=== PATIENT | female | born 1995 | race American Indian/Alaskan Native ===

== ENCOUNTER 2019-01-27 16:05 | Observation (INO) | payer MEDICAID ==
[2019-01-27] MEDS ORDERED: LACTATED RINGERS 500 ML IV ONE (17:09)
[2019-01-27 17:40] LABS: Hematocrit 23.3 % (30.3-42.9); Hemoglobin 7.7 gm/dl (10.1-14.3); Mean Corpuscular HGB Conc 33 % (30-34); Platelet Count 152 K/mm3 (140-440); Red Blood Count 3.42 M/mm3 (3.65-5.03); Red Cell Distribution Width 18.6 % (13.2-15.2)
[2019-01-27 17:41] LABS: Mean Corpuscular Volume 68 fl (79-97)
[2019-01-27 17:46] LABS: Bacteria,Urine 1+ /HPF (Negative); Bilirubin,Urine NEG (Negative); Blood,Urine NEG (Negative); Color,Urine Yellow (Yellow); Protein,Urine <15 mg/dL mg/dL (Negative); RBC,Urine < 1.0 /HPF (0.0-6.0)
[2019-01-27 17:56] LABS: Alanine Aminotransferase 7 units/L (7-56)
[2019-01-27] MEDS ORDERED: LACTATED RINGERS 1,000 ML IV SCH ×2 (18:00→19:00)
[2019-01-27] MEDS ORDERED: TYLENOL PO PRN (18:03)
[2019-01-27] MEDS ORDERED: DEEP SEA NS PRN (18:03)
[2019-01-27] MEDS ORDERED: COLACE PO PRN (18:03)
[2019-01-27] MEDS ORDERED: ZOFRAN IV PRN (18:03)
[2019-01-27] MEDS ORDERED: AMBIEN PO PRN (18:03)
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
[2019-01-27] MEDS ORDERED: CELESTONE SOLUSPAN IM ONE (19:25)
[2019-01-27] MEDS ORDERED: CELESTONE SOLUSPAN IM SCH (20:00)
[2019-01-27] MEDS ORDERED: COLACE PO SCH (22:00)
[2019-01-27] MEDS ORDERED: DECADRON IM SCH (22:00)
[2019-01-27] MEDS: FEOSOL PO SCH (22:13)
--- NOTE | 2019-01-28 07:38 | Progress Note ---
Assessment and Plan 24h urine in progress - will be completed @ 9040. b/p 140-160/80-90's. Pt states she has been told several times by various hospitals that she has elevated blood pressure but she has never had consistent care with a PCP to make dx. She denies SALOMON, visual changes, epigastric pain, ctx, SROM or vag bleeding. pt reports active FM. Continue current management. - Patient Problems (1) 34 weeks gestation of Onset Date: ~01/27/19 Current Visit: Yes Status: Acute (2) Anemia affecting Current Visit: Yes Status: Acute Qualifiers: Trimester: third trimester Qualified Code(s): O99.013 - Anemia complicating , third trimester Plan to address problem: FE and Colace (3) Elevated blood pressure complicating in third trimester, antepartum Onset Date: ~01/27/19 Current Visit: Yes Status: Acute Plan to address problem: 24h urine in progress (4) Insufficient care in third trimester Current Visit: Yes Status: Acute Subjective - Subjective Date of service: 01/28/19 Principal diagnosis: IUP @ 34+4, 24h urine collection in progress Patient reports: other (denies SALOMON, visual changes, epigastric pain, ctx, SROM or vag bleeding), no new complaints Objective - Vital Signs Vital Signs: Vital Signs - 12hr 01/27/19 01/27/19 01/27/19 19:40 19:41 19:45 Pulse Rate 97 H 97 H 94 H Blood Pressure Blood Pressure [Left] O2 Sat by Pulse 92 92 99 Oximetry 01/27/19 01/27/19 01/27/19 19:46 19:50 19:55 Pulse Rate 105 H 93 H 98 H Blood Pressure Blood Pressure [Left] O2 Sat by Pulse 83 L 100 98 Oximetry 01/27/19 01/27/19 01/27/19 20:04 20:09 20:14 Pulse Rate 112 H 97 H 96 H Blood Pressure Blood Pressure [Left] O2 Sat by Pulse 92 98 97 Oximetry 01/27/19 01/27/19 01/27/19 20:19 20:24 20:29 Pulse Rate 104 H 92 H 102 H Blood Pressure Blood Pressure [Left] O2 Sat by Pulse 97 98 97 Oximetry 01/27/19 01/27/19 01/27/19 20:34 20:39 20:43 Pulse Rate 104 H 132 H 122 H Blood Pressure Blood Pressure [Left] O2 Sat by Pulse 98 98 87 Oximetry 01/27/19 01/27/19 01/27/19 20:44 20:49 20:54 Pulse Rate 107 H 103 H 106 H Blood Pressure Blood Pressure [Left] O2 Sat by Pulse 98 97 97 Oximetry 01/27/19 01/27/19 01/27/19 20:59 21:02 21:04 Pulse Rate 104 H 89 95 H Blood Pressure Blood Pressure [Left] O2 Sat by Pulse 96 86 96 Oximetry 01/27/19 01/27/19 01/27/19 21:09 21:14 21:21 Pulse Rate 116 H 105 H 130 H Blood Pressure Blood Pressure [Left] O2 Sat by Pulse 98 98 84 Oximetry 01/27/19 01/27/19 01/27/19 21:22 21:23 21:26 Pulse Rate 110 H 109 H 108 H Blood Pressure 165/98 162/98 Blood Pressure [Left] O2 Sat by Pulse 98 Oximetry 01/27/19 01/27/19 01/27/19 21:31 21:36 21:39 Pulse Rate 101 H 98 H 99 H Blood Pressure Blood Pressure [Left] O2 Sat by Pulse 99 97 94 Oximetry 01/27/19 01/27/19 01/27/19 21:41 21:46 21:51 Pulse Rate 98 H 91 H 90 Blood Pressure Blood Pressure [Left] O2 Sat by Pulse 96 95 98 Oximetry 01/27/19 01/27/19 01/27/19 21:56 22:10 22:15 Pulse Rate 106 H 110 H Blood Pressure Blood Pressure 162/98 [Left] O2 Sat by Pulse 98 98 Oximetry 01/27/19 01/27/19 01/27/19 22:25 22:30 22:35 Pulse Rate 113 H 103 H 88 Blood Pressure Blood Pressure [Left] O2 Sat by Pulse 99 99 97 Oximetry 01/27/19 01/27/19 01/27/19 22:40 22:45 22:50 Pulse Rate 101 H 108 H 108 H Blood Pressure 166/98 Blood Pressure [Left] O2 Sat by Pulse 98 99 99 Oximetry 01/27/19 01/27/19 01/27/19 22:54 22:55 23:00 Pulse Rate 91 H 85 85 Blood Pressure Blood Pressure [Left] O2 Sat by Pulse 82 L 99 96 Oximetry 01/27/19 01/27/19 01/27/19 23:05 23:10 23:15 Pulse Rate 85 82 98 H Blood Pressure Blood Pressure [Left] O2 Sat by Pulse 99 98 98 Oximetry 01/27/19 01/27/19 01/27/19 23:20 23:25 23:30 Pulse Rate 104 H 88 89 Blood Pressure 143/92 Blood Pressure [Left] O2 Sat by Pulse 99 98 97 Oximetry 01/27/19 01/27/19 01/27/19 23:35 23:40 23:46 Pulse Rate 89 109 H 113 H Blood Pressure Blood Pressure [Left] O2 Sat by Pulse 97 96 96 Oximetry 01/27/19 01/27/19 01/27/19 23:47 23:51 23:56 Pulse Rate 114 H 94 H 85 Blood Pressure Blood Pressure [Left] O2 Sat by Pulse 86 96 96 Oximetry 01/28/19 01/28/19 01/28/19 00:01 00:06 00:11 Pulse Rate 81 88 77 Blood Pressure Blood Pressure [Left] O2 Sat by Pulse 96 96 95 Oximetry 01/28/19 01/28/19 01/28/19 00:16 00:20 00:21 Pulse Rate 81 105 H 105 H Blood Pressure 151/83 150/81 Blood Pressure [Left] O2 Sat by Pulse 96 98 Oximetry 01/28/19 01/28/19 01/28/19 00:23 00:26 00:31 Pulse Rate 105 H 90 96 H Blood Pressure Blood Pressure [Left] O2 Sat by Pulse 94 95 97 Oximetry 01/28/19 01/28/19 01/28/19 00:36 00:38 00:41 Pulse Rate 80 110 H 80 Blood Pressure Blood Pressure [Left] O2 Sat by Pulse 97 92 96 Oximetry 01/28/19 01/28/19 01/28/19 00:46 00:51 00:56 Pulse Rate 79 81 79 Blood Pressure Blood Pressure [Left] O2 Sat by Pulse 96 95 96 Oximetry 01/28/19 01/28/19 01/28/19 01:01 01:06 01:11 Pulse Rate 96 H 98 H 80 Blood Pressure Blood Pressure [Left] O2 Sat by Pulse 97 97 95 Oximetry 01/28/19 01/28/19 01/28/19 01:14 01:19 02:07 Pulse Rate 109 H 107 H 82 Blood Pressure 142/93 140/85 162/91 Blood Pressure [Left] O2 Sat by Pulse Oximetry 01/28/19 01/28/19 01/28/19 02:22 06:00 06:04 Pulse Rate 88 112 H 115 H Blood Pressure 140/80 145/84 Blood Pressure [Left] O2 Sat by Pulse 100 Oximetry 01/28/19 06:31 Pulse Rate 115 H Blood Pressure Blood Pressure 145/84 [Left] O2 Sat by Pulse Oximetry - Exam Breasts: normal Cardiovascular: Regular rate Lungs: Clear to auscultation Abdomen: Present: normal appearance, soft Vulva: both: normal FHR: auscultation normal, category 1 Uterine Contraction Monitor Mode: External Uterine Contraction Pattern: Irregular Uterine Tone Measurement Phase: Contraction Uterine Contraction Intensity: Mild Extremities: normal Deep Tendon Reflex Grade: Normal +2 - Labs Labs: Abnormal Labs 01/27/19 01/27/19 01/27/19 Unknown Unknown Unknown RBC 3.42 L Hgb 7.7 L Hct 23.3 L MCV 68 L MCH 23 L RDW 18.6 H Creatinine 0.5 L Lactate Dehydrogenase 354 H Urine pH 9.0 H Laboratory Results - last 24 hr 01/27/19 01/27/19 01/27/19 20:29 Unknown Unknown WBC 8.8 RBC 3.42 L Hgb 7.7 L Hct 23.3 L MCV 68 L MCH 23 L MCHC 33 RDW 18.6 H Plt Count 152 Creatinine Estimated GFR Uric Acid AST ALT Lactate Dehydrogenase Urine Color Yellow Urine Turbidity Clear Urine pH 9.0 H Ur Specific [place] 1.006 Urine Protein <15 mg/dl Urine Glucose (UA) Neg Urine Ketones 20 Urine Blood Neg Urine Nitrite Neg Urine Bilirubin Neg Urine Urobilinogen 4.0 Ur Leukocyte Esterase Tr Urine WBC (Auto) 2.0 Urine RBC (Auto) < 1.0 U Epithel Cells (Auto) 2.0 Urine Bacteria (Auto) 1+ Blood Type B POSITIVE Antibody Screen Negative 01/27/19 Unknown WBC RBC Hgb Hct MCV MCH MCHC RDW Plt Count Creatinine 0.5 L Estimated GFR > 60 Uric Acid 4.0 AST 26 ALT 7 Lactate Dehydrogenase 354 H Urine Color Urine Turbidity Urine pH Ur Specific [place] Urine Protein Urine Glucose (UA) Urine Ketones Urine Blood Urine Nitrite Urine Bilirubin Urine Urobilinogen Ur Leukocyte Esterase Urine WBC (Auto) Urine RBC (Auto) U Epithel Cells (Auto) Urine Bacteria (Auto) Blood Type Antibody Screen
[2019-01-28] MEDS ORDERED: COLACE PO SCH (10:00)
[2019-01-28] MEDS ORDERED: PRENATAL VITAMIN PO SCH (10:00)
[2019-01-28] MEDS: FEOSOL PO SCH (10:07)
--- NOTE | 2019-01-28 20:23 | Discharge Summary ---
Providers - Providers Date of Admission: 01/27/19 18:03 Date of discharge: 01/28/19 Attending physician: IRWIN ENCARNACION Primary care physician: IRWIN ENCARNACION Hospitalization Reason for admission: IUP - , other (back pain with elevated blood pressures) Hospital course: Patient presented to labor and delivery with complaints of back pain. Her evaluation was noted patient had elevated blood pressure. Patient admitted for serial blood pressure medicines. Patient had normal PIH labs. Hospitalization patient does admit that she had several medications which she had been evaluated for elevated blood pressure. Hospitalization her back pain improved her blood pressures for most probably under 140/90 did had some elevations higher than the stay. She denied any headaches or blurred vision. Patient 24-hour urine protein returned at 440 g. Patient also received 2 doses of betamethasone. At time of discharge patient was stable. Patient may either have chronic hypertension versus gestational hypertension. Patient was given precautions for preeclampsia and was scheduled for follow-up in the office on January 30. Condition at discharge: Good Disposition: DC-01 TO HOME OR SELFCARE - Discharge Diagnoses (1) 34 weeks gestation of Status: Acute (2) Anemia affecting in third trimester Status: Acute (3) Elevated blood pressure complicating in third trimester, an tepartum Status: Acute (4) Insufficient care in third trimester Status: Acute Plan - Provider Discharge Summary Activity: other (bed rest) Diet: routine Additional instructions: [] Smoking cessation referral if applicable(refer to patient education folder for contact #) [] Refer to [facility]'s [facility] Booklet Call your doctor immediately for: * Fever > 100.5 * Heavy vaginal bleeding ( >1 pad per hour) * Severe persistent headache * Shortness of breath * Visual changes * Signs of labor * - Follow up plan Follow up: IRWIN ENCARNACION MD [Primary Care Provider] - 7 Days Forms: [facility] Discharge Summary
[2019-01-28 20:50] VITALS: BP 138/66
--- NOTE | 2019-01-29 06:01 | Ultrasound Report ---
PROCEDURE: US OB FOLLOW UP TECHNIQUE: Real-time sonography performed for focused follow-up or re-evaluation of each size/ growth parameters and amniotic fluid or re-evaluation of suspected or confirmed abnormality on prior imaging. HISTORY: wellbeing COMPARISONS: None . FINDINGS: FETUS IUP: Single living intrauterine . Position: Cephalic . Amniotic fluid volume: Amniotic fluid index is 10.9 cm. . Heart rate and rhythm: 128 BPM, Regular . anatomic survey: Limited due to advanced gestational age. . MEASUREMENTS BPD: 8.6 cm corresponding to 34 weeks and 4 days . HC: 31 cm corresponding to 34 weeks and 4 days . AC: 29.3 cm corresponding to 33 weeks and 2 days . FL: 6.5 cm corresponding to 33 weeks and 4 days . Mean Gestational Age (composite criteria): 34 weeks . Ratio biometry: Normal . Estimated Weight: 2237 grams +/- grams. ounces +/- .ounces. percentile. Interval growth: Appropriate . Estimated Due Date (earliest scan): 03/11/2019 . IMPRESSION: 1. Single living intrauterine gestation at approximately 34 weeks . 2. EDC by US 03/11/2019 . This document is electronically signed by Frankie Mills MD., January 29 2019 06:00:00 AM ET
--- NOTE | 2019-01-29 06:03 | Ultrasound Report ---
PROCEDURE: US OB BPP WO NON-STRESS TECHNIQUE: Real-time sonography performed for focused follow-up or re-evaluation of each size/ growth parameters and amniotic fluid or re-evaluation of suspected or confirmed abnormality on prior imaging. HISTORY: wellbeing COMPARISONS: None . FINDINGS: breathing movements: 2 movements: 2. posture and tone: 2. Qualitative amniotic fluid volume: 2. IMPRESSION: biophysical profile is normal at 8/8. This document is electronically signed by Frankie Mills MD., January 29 2019 06:01:15 AM ET
== END 2019-01-28 21:30 | disposition home or self-care (01) ==
LOC: TRG 16:05 → LD 18:03
PROVIDERS: ADMIT Obstetrics & Gynecology; ATTEND Obstetrics & Gynecology
DX: O99.013 Anemia complicating pregnancy, third trimester (principal); O26.893 Other specified pregnancy related conditions, third trimester; R03.0 Elevated blood-pressure reading, without diagnosis of hypertension; O09.33 Supervision of pregnancy with insufficient antenatal care, third trimester; Z3A.34 34 weeks gestation of pregnancy
CPT/HCPCS: 36415; 76816; 76819; 81001; 82565; 83615; 84156; 84450; 84460; 84550; 85027; 86850; 86900; 86901; 96372; G0378; J0702; J7120

== ENCOUNTER 2019-01-30 12:05 | Inpatient (IN) | payer MEDICAID ==
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
[2019-01-30] MEDS ORDERED: MAGNESIUM SULFATE 4GM/100ML 4 GM/100 ML BAG IV ONE (12:50)
[2019-01-30] MEDS: NORMODYNE PO SCH ×2 (12:58→21:52)
[2019-01-30] MEDS ORDERED: APRESOLINE IV PRN (13:00)
[2019-01-30] MEDS ORDERED: BRETHINE SUB-Q PRN (13:00)
[2019-01-30] MEDS ORDERED: XYLOCAINE 2% INFILTRATI NR (13:00)
[2019-01-30] MEDS ORDERED: SUBLIMAZE IV PRN (13:00)
[2019-01-30] MEDS ORDERED: PITOCin/NS 30 UNIT/500ML 30 UNITS/500 ML BAG IV SCH (13:00)
[2019-01-30] MEDS ORDERED: PITOCin/NS 20 UNIT/1000ML DRIP 20 UNITS/1,000 ML BAG IV SCH (13:00)
[2019-01-30] MEDS ORDERED: MINERAL OIL PO PRN (13:00)
[2019-01-30] MEDS: MAGNESIUM SULFATE 40GM/1000ML 40 GM/1,000 ML BAG IV SCH (13:30)
[2019-01-30] MEDS: LACTATED RINGERS 1,000 ML IV SCH (13:33)
[2019-01-30 13:42] LABS: Hematocrit 24.8 % (30.3-42.9); Hemoglobin 7.6 gm/dl (10.1-14.3); Mean Corpuscular HGB Conc 30 % (30-34); Mean Corpuscular Volume 70 fl (79-97); Platelet Count 146 K/mm3 (140-440); Red Blood Count 3.53 M/mm3 (3.65-5.03); Red Cell Distribution Width 18.7 % (13.2-15.2)
[2019-01-30 13:56] LABS: Alanine Aminotransferase 11 units/L (7-56)
[2019-01-30] MEDS ORDERED: AMPICILLIN/NS 2 GM/100 ML 2 GM/100 ML BAG IV ONE (15:11)
[2019-01-30 16:18] LABS: Bacteria,Urine 1+ /HPF (Negative); Bilirubin,Urine NEG (Negative); Blood,Urine NEG (Negative); Color,Urine Straw (Yellow); Mucus,Urine FEW /HPF; Protein,Urine <15 mg/dL mg/dL (Negative); Urobilinogen,Urine < 2.0 mg/dL (<2.0); WBC,Urine < 1.0 /HPF (0.0-6.0)
--- NOTE | 2019-01-30 18:10 | Event Note ---
Date: 01/30/19 Patient complains of contractions. Patient denies any headache or visual changes. Abdomen soft nontender. Cervix fingertip 40% effacement and -3 station. Patient's blood pressures have improved mostly 140s over 80s to 90s. Patient's PIH labs within normal limits. Patient currently on magnesium sulfate. We will stop Pitocin. Allowed patient to eat. We'll place Cervidil this evening. We'll continue to monitor blood pressure. Discussed with the patient and family indications for immediate delivery including change in status and patient's with signs and symptoms of severe preeclampsia.
[2019-01-30] MEDS ORDERED: CERVIDIL VG ONE (21:00)
[2019-01-31] MEDS: LACTATED RINGERS 1,000 ML IV SCH ×2 (00:37→02:52)
--- NOTE | 2019-01-31 08:39 | Progress Note ---
Assessment and Plan - Patient Problems (1) 35 weeks gestation of Onset Date: ~01/30/19 Current Visit: Yes Status: Acute (2) Pre-eclampsia complicating hypertension Onset Date: ~01/30/19 Current Visit: Yes Status: Acute Plan to address problem: Start pitocin Preeclampsia again explained, plan of care discussed, questions encouraged and answered. she voiced understanding (3) Anemia affecting in third trimester Onset Date: ~01/30/19 Current Visit: Yes Status: Acute (4) Insufficient care in third trimester Current Visit: Yes Status: Acute Subjective - Subjective Date of service: 01/31/19 Interval history: IUP@35weeks, Preeclampsia with severe features Patient reports: movement normal, contractions, no new complaints Objective - Vital Signs Vital Signs: Vital Signs - 12hr 01/30/19 01/30/19 01/30/19 20:38 21:07 21:37 Pulse Rate 89 86 85 Blood Pressure 132/71 158/92 130/80 O2 Sat by Pulse Oximetry 01/30/19 01/30/19 01/30/19 21:52 22:07 23:07 Pulse Rate 85 89 88 Blood Pressure 130/80 133/82 133/87 O2 Sat by Pulse Oximetry 01/30/19 01/31/19 01/31/19 23:37 00:08 00:37 Pulse Rate 78 77 77 Blood Pressure 137/89 141/84 122/74 O2 Sat by Pulse Oximetry 01/31/19 01/31/19 01/31/19 01:09 01:38 02:07 Pulse Rate 80 76 72 Blood Pressure 127/78 130/81 136/86 O2 Sat by Pulse Oximetry 01/31/19 01/31/19 01/31/19 02:37 03:08 03:39 Pulse Rate 71 72 82 Blood Pressure 124/71 130/70 136/70 O2 Sat by Pulse Oximetry 01/31/19 01/31/19 01/31/19 04:08 04:37 05:07 Pulse Rate 93 H 90 84 Blood Pressure 120/66 127/72 135/83 O2 Sat by Pulse Oximetry 01/31/19 01/31/19 01/31/19 06:07 06:27 06:32 Pulse Rate 85 85 82 Blood Pressure 144/70 O2 Sat by Pulse 97 98 Oximetry 01/31/19 01/31/19 01/31/19 06:37 06:39 06:42 Pulse Rate 83 77 85 Blood Pressure 130/74 O2 Sat by Pulse 98 99 Oximetry 01/31/19 01/31/19 01/31/19 06:47 06:52 06:57 Pulse Rate 88 83 81 Blood Pressure O2 Sat by Pulse 98 98 99 Oximetry 01/31/19 01/31/19 01/31/19 07:02 07:07 07:08 Pulse Rate 81 84 80 Blood Pressure 129/76 O2 Sat by Pulse 99 98 Oximetry 01/31/19 01/31/19 01/31/19 07:12 07:17 07:22 Pulse Rate 96 H 88 78 Blood Pressure O2 Sat by Pulse 98 99 99 Oximetry 01/31/19 01/31/19 01/31/19 07:27 07:32 07:37 Pulse Rate 82 77 79 Blood Pressure O2 Sat by Pulse 99 98 98 Oximetry 01/31/19 01/31/19 01/31/19 07:38 07:42 07:47 Pulse Rate 81 81 81 Blood Pressure 155/93 O2 Sat by Pulse 98 99 Oximetry 01/31/19 01/31/19 01/31/19 07:52 07:57 08:02 Pulse Rate 82 84 85 Blood Pressure O2 Sat by Pulse 98 96 97 Oximetry 01/31/19 01/31/19 01/31/19 08:07 08:08 08:12 Pulse Rate 87 83 87 Blood Pressure 153/89 144/85 O2 Sat by Pulse 98 98 Oximetry 01/31/19 01/31/19 01/31/19 08:17 08:22 08:27 Pulse Rate 92 H 98 H 88 Blood Pressure O2 Sat by Pulse 98 98 99 Oximetry 01/31/19 08:32 Pulse Rate 97 H Blood Pressure O2 Sat by Pulse 97 Oximetry - Exam Breasts: deferred Cardiovascular: Regular rate Lungs: Clear to auscultation, Normal air movement Abdomen: Present: normal appearance, soft. Absent: tenderness Vulva: both: normal Uterus: Present: fundal height above umbilicus. Absent: tenderness FHR: category 1 Uterine Contraction Monitor Mode: External Cervical Dilatation: 1.5 (posterior) Cervical Effacement Percentage: 50 station: -1, cervidil removed Uterine Contraction Pattern: Irregular Extremities: edema (trace) Deep Tendon Reflex Grade: Normal but brisk +3 - Labs Labs: Abnormal Labs 04/05/19 04/05/19 04/05/19 13:20 13:20 15:00 WBC 11.4 H RBC 3.53 L Hgb 7.6 L Hct 24.8 L MCV 70 L MCH 21 L RDW 18.7 H Creatinine 0.5 L Magnesium Lactate Dehydrogenase 374 H Urine pH 8.0 H 01/30/19 01/30/19 01/31/19 16:18 22:37 07:13 WBC RBC Hgb Hct MCV MCH RDW Creatinine Magnesium 3.90 H 5.50 H 5.80 H Lactate Dehydrogenase Urine pH Laboratory Results - last 24 hr 01/30/19 01/30/19 01/30/19 13:20 13:20 13:20 WBC 11.4 H RBC 3.53 L Hgb 7.6 L Hct 24.8 L MCV 70 L MCH 21 L MCHC 30 RDW 18.7 H Plt Count 146 Creatinine 0.5 L Estimated GFR > 60 Uric Acid 4.0 Magnesium AST 27 ALT 11 Lactate Dehydrogenase 374 H Urine Color Urine Turbidity Urine pH Ur Specific [place] Urine Protein Urine Glucose (UA) Urine Ketones Urine Blood Urine Nitrite Urine Bilirubin Urine Urobilinogen Ur Leukocyte Esterase Urine WBC (Auto) Urine RBC (Auto) U Epithel Cells (Auto) Urine Bacteria (Auto) Urine Mucus Blood Type B POSITIVE Antibody Screen Negative 01/30/19 01/30/19 01/30/19 15:00 16:18 22:37 WBC RBC Hgb Hct MCV MCH MCHC RDW Plt Count Creatinine Estimated GFR Uric Acid Magnesium 3.90 H 5.50 H AST ALT Lactate Dehydrogenase Urine Color Straw Urine Turbidity Clear Urine pH 8.0 H Ur Specific [place] 1.004 Urine Protein <15 mg/dl Urine Glucose (UA) Neg Urine Ketones Neg Urine Blood Neg Urine Nitrite Neg Urine Bilirubin Neg Urine Urobilinogen < 2.0 Ur Leukocyte Esterase Neg Urine WBC (Auto) < 1.0 Urine RBC (Auto) 2.0 U Epithel Cells (Auto) < 1.0 Urine Bacteria (Auto) 1+ Urine Mucus Few Blood Type Antibody Screen 01/31/19 07:13 WBC RBC Hgb Hct MCV MCH MCHC RDW Plt Count Creatinine Estimated GFR Uric Acid Magnesium 5.80 H AST ALT Lactate Dehydrogenase Urine Color Urine Turbidity Urine pH Ur Specific [place] Urine Protein Urine Glucose (UA) Urine Ketones Urine Blood Urine Nitrite Urine Bilirubin Urine Urobilinogen Ur Leukocyte Esterase Urine WBC (Auto) Urine RBC (Auto) U Epithel Cells (Auto) Urine Bacteria (Auto) Urine Mucus Blood Type Antibody Screen
[2019-01-31] MEDS ORDERED: APRESOLINE IV PRN (08:43)
[2019-01-31] MEDS ORDERED: LACTATED RINGERS 1,000 ML IV SCH (09:00)
[2019-01-31] MEDS ORDERED: PITOCin/NS 30 UNIT/500ML 30 UNITS/500 ML BAG IV SCH ×2 (09:00→23:45)
[2019-01-31] MEDS: NORMODYNE PO SCH ×2 (10:47→21:35)
[2019-01-31] MEDS: MAGNESIUM SULFATE 40GM/1000ML 40 GM/1,000 ML BAG IV SCH (11:24)
[2019-01-31] MEDS ORDERED: AMPICILLIN/NS 1 GM/50 ML 1 GM/50 ML BAG IV SCH (19:30)
--- NOTE | 2019-01-31 19:56 | Progress Note ---
Assessment and Plan Patient only on 4mu/min pitocin all day. Will continue pitocin until ~10p, and ? cervidil if no cervical change. Patient aware and agrees with plan of care - Patient Problems (1) 35 weeks gestation of Onset Date: ~01/30/19 Current Visit: Yes Status: Acute (2) Pre-eclampsia complicating hypertension Onset Date: ~01/30/19 Current Visit: Yes Status: Acute (3) Anemia affecting in third trimester Onset Date: ~01/30/19 Current Visit: Yes Status: Acute (4) Insufficient care in third trimester Current Visit: Yes Status: Acute Subjective - Subjective Date of service: 01/31/19 Principal diagnosis: IUP@35weeks, Preeclampsia Interval history: IUP@35weeks, Preeclampsia with severe features Patient reports: movement normal, contractions, other (" I feel bad b/c of the magnesium"), no new complaints Objective - Vital Signs Vital Signs: Vital Signs - 12hr 01/31/19 01/31/19 01/31/19 07:52 07:57 08:02 Temperature Pulse Rate 82 84 85 Respiratory Rate Blood Pressure O2 Sat by Pulse 98 96 97 Oximetry 01/31/19 01/31/19 01/31/19 08:07 08:08 08:12 Temperature Pulse Rate 87 83 87 Respiratory Rate Blood Pressure 153/89 144/85 O2 Sat by Pulse 98 98 Oximetry 01/31/19 01/31/19 01/31/19 08:17 08:22 08:27 Temperature Pulse Rate 92 H 98 H 88 Respiratory Rate Blood Pressure O2 Sat by Pulse 98 98 99 Oximetry 01/31/19 01/31/19 01/31/19 08:32 08:37 08:38 Temperature Pulse Rate 97 H 87 89 Respiratory Rate Blood Pressure 150/83 O2 Sat by Pulse 97 98 Oximetry 01/31/19 01/31/19 01/31/19 08:42 08:47 08:52 Temperature Pulse Rate 93 H 89 89 Respiratory Rate Blood Pressure O2 Sat by Pulse 98 99 99 Oximetry 01/31/19 01/31/19 01/31/19 08:57 09:02 09:07 Temperature Pulse Rate 87 88 90 Respiratory Rate Blood Pressure O2 Sat by Pulse 99 98 98 Oximetry 01/31/19 01/31/19 01/31/19 09:08 09:12 09:17 Temperature Pulse Rate 89 88 89 Respiratory Rate Blood Pressure 147/90 O2 Sat by Pulse 98 98 Oximetry 01/31/19 01/31/19 01/31/19 09:22 09:27 09:32 Temperature Pulse Rate 84 89 87 Respiratory Rate Blood Pressure O2 Sat by Pulse 96 96 97 Oximetry 01/31/19 01/31/19 01/31/19 09:37 09:42 09:47 Temperature Pulse Rate 89 88 82 Respiratory Rate Blood Pressure 138/85 O2 Sat by Pulse 95 96 95 Oximetry 01/31/19 01/31/19 01/31/19 09:52 09:57 10:02 Temperature Pulse Rate 99 H 82 85 Respiratory Rate Blood Pressure O2 Sat by Pulse 97 96 96 Oximetry 01/31/19 01/31/19 01/31/19 10:07 10:12 10:17 Temperature Pulse Rate 92 H 83 84 Respiratory Rate Blood Pressure 143/80 O2 Sat by Pulse 97 97 96 Oximetry 01/31/19 01/31/19 01/31/19 10:19 10:22 10:27 Temperature Pulse Rate 90 88 88 Respiratory Rate Blood Pressure O2 Sat by Pulse 93 97 96 Oximetry 01/31/19 01/31/19 01/31/19 10:32 10:37 10:42 Temperature Pulse Rate 87 91 H 87 Respiratory Rate Blood Pressure 131/79 O2 Sat by Pulse 98 97 95 Oximetry 01/31/19 01/31/19 01/31/19 10:47 10:52 10:57 Temperature Pulse Rate 89 88 86 Respiratory Rate Blood Pressure 131/79 O2 Sat by Pulse 96 96 97 Oximetry 01/31/19 01/31/19 01/31/19 11:02 11:07 11:08 Temperature Pulse Rate 88 82 87 Respiratory Rate Blood Pressure 141/90 O2 Sat by Pulse 98 98 Oximetry 01/31/19 01/31/19 01/31/19 11:13 11:18 11:23 Temperature Pulse Rate 89 90 87 Respiratory Rate Blood Pressure O2 Sat by Pulse 97 98 97 Oximetry 01/31/19 01/31/19 01/31/19 11:28 11:30 11:33 Temperature 98 F Pulse Rate 82 86 Respiratory 18 Rate Blood Pressure O2 Sat by Pulse 97 98 Oximetry 01/31/19 01/31/19 01/31/19 11:37 11:38 11:43 Temperature Pulse Rate 81 85 87 Respiratory Rate Blood Pressure 142/84 O2 Sat by Pulse 97 98 Oximetry 01/31/19 01/31/19 01/31/19 11:48 11:53 11:58 Temperature Pulse Rate 80 80 79 Respiratory Rate Blood Pressure O2 Sat by Pulse 97 96 96 Oximetry 01/31/19 01/31/19 01/31/19 12:03 12:07 12:08 Temperature Pulse Rate 81 79 86 Respiratory Rate Blood Pressure 130/77 O2 Sat by Pulse 96 95 Oximetry 01/31/19 01/31/19 01/31/19 12:12 12:13 12:18 Temperature Pulse Rate 85 79 94 H Respiratory Rate Blood Pressure O2 Sat by Pulse 94 96 96 Oximetry 01/31/19 01/31/19 01/31/19 12:23 12:28 12:33 Temperature Pulse Rate 84 81 84 Respiratory Rate Blood Pressure O2 Sat by Pulse 97 97 98 Oximetry 01/31/19 01/31/19 01/31/19 12:37 12:38 12:43 Temperature Pulse Rate 78 76 83 Respiratory Rate Blood Pressure 134/82 O2 Sat by Pulse 97 98 Oximetry 01/31/19 01/31/19 01/31/19 12:48 12:53 12:58 Temperature Pulse Rate 83 82 82 Respiratory Rate Blood Pressure O2 Sat by Pulse 98 99 98 Oximetry 01/31/19 01/31/19 01/31/19 13:03 13:08 13:09 Temperature Pulse Rate 84 78 77 Respiratory Rate Blood Pressure 136/85 O2 Sat by Pulse 99 98 Oximetry 01/31/19 01/31/19 01/31/19 13:13 13:18 13:23 Temperature Pulse Rate 77 84 74 Respiratory Rate Blood Pressure O2 Sat by Pulse 98 97 99 Oximetry 01/31/19 01/31/19 01/31/19 13:28 13:33 13:37 Temperature Pulse Rate 70 74 77 Respiratory Rate Blood Pressure 136/85 O2 Sat by Pulse 99 99 Oximetry 01/31/19 01/31/19 01/31/19 13:38 13:43 13:48 Temperature Pulse Rate 75 76 81 Respiratory Rate Blood Pressure O2 Sat by Pulse 99 99 99 Oximetry 01/31/19 01/31/19 01/31/19 13:53 13:58 14:03 Temperature Pulse Rate 83 82 79 Respiratory Rate Blood Pressure O2 Sat by Pulse 100 100 100 Oximetry 01/31/19 01/31/19 01/31/19 14:07 14:08 14:13 Temperature Pulse Rate 79 81 79 Respiratory Rate Blood Pressure 128/80 O2 Sat by Pulse 99 98 Oximetry 01/31/19 01/31/19 01/31/19 14:18 14:23 14:28 Temperature Pulse Rate 80 83 88 Respiratory Rate Blood Pressure O2 Sat by Pulse 99 99 99 Oximetry 01/31/19 01/31/19 01/31/19 14:33 14:37 14:38 Temperature Pulse Rate 78 75 82 Respiratory Rate Blood Pressure 130/83 O2 Sat by Pulse 100 100 Oximetry 01/31/19 01/31/19 01/31/19 14:43 14:48 14:53 Temperature Pulse Rate 80 82 86 Respiratory Rate Blood Pressure O2 Sat by Pulse 99 99 99 Oximetry 01/31/19 01/31/19 01/31/19 14:58 15:03 15:08 Temperature Pulse Rate 81 83 83 Respiratory Rate Blood Pressure 128/76 O2 Sat by Pulse 100 100 99 Oximetry 01/31/19 01/31/19 01/31/19 15:13 15:18 15:23 Temperature Pulse Rate 76 74 79 Respiratory Rate Blood Pressure O2 Sat by Pulse 99 100 100 Oximetry 01/31/19 01/31/19 01/31/19 15:28 15:33 15:37 Temperature Pulse Rate 77 77 71 Respiratory Rate Blood Pressure 139/90 O2 Sat by Pulse 99 100 Oximetry 01/31/19 01/31/19 01/31/19 15:38 15:43 15:48 Temperature Pulse Rate 77 67 67 Respiratory Rate Blood Pressure O2 Sat by Pulse 99 100 100 Oximetry 01/31/19 01/31/19 01/31/19 15:53 15:58 16:03 Temperature Pulse Rate 69 83 72 Respiratory Rate Blood Pressure O2 Sat by Pulse 100 99 100 Oximetry 01/31/19 01/31/19 01/31/19 16:08 16:13 16:18 Temperature Pulse Rate 77 69 73 Respiratory Rate Blood Pressure 147/89 O2 Sat by Pulse 100 100 100 Oximetry 01/31/19 01/31/19 01/31/19 16:23 16:28 16:33 Temperature Pulse Rate 81 79 75 Respiratory Rate Blood Pressure O2 Sat by Pulse 99 99 100 Oximetry 01/31/19 01/31/19 01/31/19 16:38 16:42 16:43 Temperature Pulse Rate 76 94 H 74 Respiratory Rate Blood Pressure 141/85 O2 Sat by Pulse 100 79 L 100 Oximetry 01/31/19 01/31/19 01/31/19 16:48 16:53 16:58 Temperature Pulse Rate 74 72 74 Respiratory Rate Blood Pressure O2 Sat by Pulse 100 100 100 Oximetry 01/31/19 01/31/19 01/31/19 17:03 17:08 17:10 Temperature Pulse Rate 71 89 89 Respiratory Rate Blood Pressure O2 Sat by Pulse 100 99 94 Oximetry 01/31/19 01/31/19 01/31/19 17:13 17:18 17:23 Temperature Pulse Rate 87 84 78 Respiratory Rate Blood Pressure O2 Sat by Pulse 97 99 100 Oximetry 01/31/19 01/31/19 01/31/19 17:28 17:30 17:33 Temperature 97.6 F Pulse Rate 74 71 Respiratory 18 Rate Blood Pressure O2 Sat by Pulse 100 100 Oximetry 01/31/19 01/31/19 01/31/19 17:37 17:38 17:43 Temperature Pulse Rate 82 74 80 Respiratory Rate Blood Pressure 147/87 O2 Sat by Pulse 100 99 Oximetry 01/31/19 01/31/19 01/31/19 17:48 17:53 17:58 Temperature Pulse Rate 83 83 81 Respiratory Rate Blood Pressure O2 Sat by Pulse 99 98 98 Oximetry 01/31/19 01/31/19 01/31/19 18:03 18:07 18:08 Temperature Pulse Rate 82 81 80 Respiratory Rate Blood Pressure 122/78 O2 Sat by Pulse 98 97 Oximetry 01/31/19 01/31/19 01/31/19 18:13 18:18 18:23 Temperature Pulse Rate 79 81 82 Respiratory Rate Blood Pressure O2 Sat by Pulse 97 97 98 Oximetry 01/31/19 01/31/19 01/31/19 18:28 18:33 18:38 Temperature Pulse Rate 78 78 94 H Respiratory Rate Blood Pressure O2 Sat by Pulse 96 96 97 Oximetry 01/31/19 01/31/19 01/31/19 18:39 18:43 18:48 Temperature Pulse Rate 96 H 87 80 Respiratory Rate Blood Pressure 138/92 O2 Sat by Pulse 99 97 Oximetry 01/31/19 01/31/19 01/31/19 18:53 18:55 18:58 Temperature Pulse Rate 81 79 85 Respiratory Rate Blood Pressure O2 Sat by Pulse 96 94 96 Oximetry 01/31/19 01/31/19 01/31/19 19:03 19:08 19:13 Temperature Pulse Rate 90 83 90 Respiratory Rate Blood Pressure 137/84 O2 Sat by Pulse 97 97 99 Oximetry 01/31/19 01/31/19 01/31/19 19:18 19:19 19:23 Temperature 97.6 F Pulse Rate 84 89 Respiratory 16 Rate Blood Pressure O2 Sat by Pulse 99 98 Oximetry 01/31/19 01/31/19 01/31/19 19:28 19:33 19:38 Temperature Pulse Rate 81 84 84 Respiratory Rate Blood Pressure 137/84 O2 Sat by Pulse 97 100 98 Oximetry 01/31/19 01/31/19 19:43 19:48 Temperature Pulse Rate 81 95 H Respiratory Rate Blood Pressure O2 Sat by Pulse 97 99 Oximetry - Exam Breasts: deferred Lungs: Normal air movement Abdomen: Present: soft. Absent: tenderness Vulva: both: normal Uterus: Present: fundal height above umbilicus. Absent: tenderness FHR: category 1 Uterine Contraction Monitor Mode: External Cervical Dilatation: 2 Cervical Effacement Percentage: 50 station: -1 Uterine Contraction Pattern: Irregular - Labs Labs: Abnormal Labs 01/30/19 01/30/19 01/30/19 13:20 13:20 15:00 WBC 11.4 H RBC 3.53 L Hgb 7.6 L Hct 24.8 L MCV 70 L MCH 21 L RDW 18.7 H Creatinine 0.5 L Magnesium Lactate Dehydrogenase 374 H Urine pH 8.0 H 01/30/19 01/30/19 01/31/19 16:18 22:37 07:13 WBC RBC Hgb Hct MCV MCH RDW Creatinine Magnesium 3.90 H 5.50 H 5.80 H Lactate Dehydrogenase Urine pH 01/31/19 01/31/19 12:18 17:07 WBC RBC Hgb Hct MCV MCH RDW Creatinine Magnesium 5.90 H 6.80 H Lactate Dehydrogenase Urine pH Laboratory Results - last 24 hr 01/30/19 01/31/19 01/31/19 22:37 07:13 12:18 Magnesium 5.50 H 5.80 H 5.90 H 01/31/19 17:07 Magnesium 6.80 H
[2019-01-31 21:55] LABS: Amphetamine Screen,Urine PRESUMPTIVE NEGATIVE; Benzodiazepines Screen,Urine PRESUMPTIVE NEGATIVE; Cannabinoid Screen,Urine PRESUMPTIVE NEGATIVE; Cocaine Screen,Urine PRESUMPTIVE NEGATIVE; Methadone Screen,Urine PRESUMPTIVE NEGATIVE; Opiate Screen,Urine PRESUMPTIVE NEGATIVE
--- NOTE | 2019-01-31 23:13 | Progress Note ---
Assessment and Plan - Patient Problems (1) 35 weeks gestation of Onset Date: ~01/30/19 Current Visit: Yes Status: Acute (2) Pre-eclampsia complicating hypertension Onset Date: ~01/30/19 Current Visit: Yes Status: Acute (3) Anemia affecting in third trimester Onset Date: ~01/30/19 Current Visit: Yes Status: Acute (4) Insufficient care in third trimester Current Visit: Yes Status: Acute Subjective - Subjective Date of service: 01/31/19 Principal diagnosis: IUP@35weeks, Preeclampsia Interval history: IUP@35weeks, Preeclampsia with severe features Patient reports: new complaints, loss of fluid, movement normal, contractions, other (" I feel bad b/c of the magnesium") Objective - Vital Signs Vital Signs: Vital Signs - 12hr 01/31/19 01/31/19 01/31/19 11:13 11:18 11:23 Temperature Pulse Rate 89 90 87 Respiratory Rate Blood Pressure Blood Pressure [Left] O2 Sat by Pulse 97 98 97 Oximetry 01/31/19 01/31/19 01/31/19 11:28 11:30 11:33 Temperature 98 F Pulse Rate 82 86 Respiratory 18 Rate Blood Pressure Blood Pressure [Left] O2 Sat by Pulse 97 98 Oximetry 01/31/19 01/31/19 01/31/19 11:37 11:38 11:43 Temperature Pulse Rate 81 85 87 Respiratory Rate Blood Pressure 142/84 Blood Pressure [Left] O2 Sat by Pulse 97 98 Oximetry 01/31/19 01/31/19 01/31/19 11:48 11:53 11:58 Temperature Pulse Rate 80 80 79 Respiratory Rate Blood Pressure Blood Pressure [Left] O2 Sat by Pulse 97 96 96 Oximetry 01/31/19 01/31/19 01/31/19 12:03 12:07 12:08 Temperature Pulse Rate 81 79 86 Respiratory Rate Blood Pressure 130/77 Blood Pressure [Left] O2 Sat by Pulse 96 95 Oximetry 01/31/19 01/31/19 01/31/19 12:12 12:13 12:18 Temperature Pulse Rate 85 79 94 H Respiratory Rate Blood Pressure Blood Pressure [Left] O2 Sat by Pulse 94 96 96 Oximetry 01/31/19 01/31/19 01/31/19 12:23 12:28 12:33 Temperature Pulse Rate 84 81 84 Respiratory Rate Blood Pressure Blood Pressure [Left] O2 Sat by Pulse 97 97 98 Oximetry 01/31/19 01/31/19 01/31/19 12:37 12:38 12:43 Temperature Pulse Rate 78 76 83 Respiratory Rate Blood Pressure 134/82 Blood Pressure [Left] O2 Sat by Pulse 97 98 Oximetry 01/31/19 01/31/19 01/31/19 12:48 12:53 12:58 Temperature Pulse Rate 83 82 82 Respiratory Rate Blood Pressure Blood Pressure [Left] O2 Sat by Pulse 98 99 98 Oximetry 01/31/19 01/31/19 01/31/19 13:03 13:08 13:09 Temperature Pulse Rate 84 78 77 Respiratory Rate Blood Pressure 136/85 Blood Pressure [Left] O2 Sat by Pulse 99 98 Oximetry 01/31/19 01/31/19 01/31/19 13:13 13:18 13:23 Temperature Pulse Rate 77 84 74 Respiratory Rate Blood Pressure Blood Pressure [Left] O2 Sat by Pulse 98 97 99 Oximetry 01/31/19 01/31/19 01/31/19 13:28 13:33 13:37 Temperature Pulse Rate 70 74 77 Respiratory Rate Blood Pressure 136/85 Blood Pressure [Left] O2 Sat by Pulse 99 99 Oximetry 01/31/19 01/31/19 01/31/19 13:38 13:43 13:48 Temperature Pulse Rate 75 76 81 Respiratory Rate Blood Pressure Blood Pressure [Left] O2 Sat by Pulse 99 99 99 Oximetry 01/31/19 01/31/19 01/31/19 13:53 13:58 14:03 Temperature Pulse Rate 83 82 79 Respiratory Rate Blood Pressure Blood Pressure [Left] O2 Sat by Pulse 100 100 100 Oximetry 01/31/19 01/31/19 01/31/19 14:07 14:08 14:13 Temperature Pulse Rate 79 81 79 Respiratory Rate Blood Pressure 128/80 Blood Pressure [Left] O2 Sat by Pulse 99 98 Oximetry 01/31/19 01/31/19 01/31/19 14:18 14:23 14:28 Temperature Pulse Rate 80 83 88 Respiratory Rate Blood Pressure Blood Pressure [Left] O2 Sat by Pulse 99 99 99 Oximetry 01/31/19 01/31/19 01/31/19 14:33 14:37 14:38 Temperature Pulse Rate 78 75 82 Respiratory Rate Blood Pressure 130/83 Blood Pressure [Left] O2 Sat by Pulse 100 100 Oximetry 01/31/19 01/31/19 01/31/19 14:43 14:48 14:53 Temperature Pulse Rate 80 82 86 Respiratory Rate Blood Pressure Blood Pressure [Left] O2 Sat by Pulse 99 99 99 Oximetry 01/31/19 01/31/19 01/31/19 14:58 15:03 15:08 Temperature Pulse Rate 81 83 83 Respiratory Rate Blood Pressure 128/76 Blood Pressure [Left] O2 Sat by Pulse 100 100 99 Oximetry 01/31/19 01/31/19 01/31/19 15:13 15:18 15:23 Temperature Pulse Rate 76 74 79 Respiratory Rate Blood Pressure Blood Pressure [Left] O2 Sat by Pulse 99 100 100 Oximetry 01/31/19 01/31/19 01/31/19 15:28 15:33 15:37 Temperature Pulse Rate 77 77 71 Respiratory Rate Blood Pressure 139/90 Blood Pressure [Left] O2 Sat by Pulse 99 100 Oximetry 01/31/19 01/31/19 01/31/19 15:38 15:43 15:48 Temperature Pulse Rate 77 67 67 Respiratory Rate Blood Pressure Blood Pressure [Left] O2 Sat by Pulse 99 100 100 Oximetry 01/31/19 01/31/19 01/31/19 15:53 15:58 16:03 Temperature Pulse Rate 69 83 72 Respiratory Rate Blood Pressure Blood Pressure [Left] O2 Sat by Pulse 100 99 100 Oximetry 01/31/19 01/31/19 01/31/19 16:08 16:13 16:18 Temperature Pulse Rate 77 69 73 Respiratory Rate Blood Pressure 147/89 Blood Pressure [Left] O2 Sat by Pulse 100 100 100 Oximetry 01/31/19 01/31/19 01/31/19 16:23 16:28 16:33 Temperature Pulse Rate 81 79 75 Respiratory Rate Blood Pressure Blood Pressure [Left] O2 Sat by Pulse 99 99 100 Oximetry 01/31/19 01/31/19 01/31/19 16:38 16:42 16:43 Temperature Pulse Rate 76 94 H 74 Respiratory Rate Blood Pressure 141/85 Blood Pressure [Left] O2 Sat by Pulse 100 79 L 100 Oximetry 01/31/19 01/31/19 01/31/19 16:48 16:53 16:58 Temperature Pulse Rate 74 72 74 Respiratory Rate Blood Pressure Blood Pressure [Left] O2 Sat by Pulse 100 100 100 Oximetry 01/31/19 01/31/19 01/31/19 17:03 17:08 17:10 Temperature Pulse Rate 71 89 89 Respiratory Rate Blood Pressure Blood Pressure [Left] O2 Sat by Pulse 100 99 94 Oximetry 01/31/19 01/31/19 01/31/19 17:13 17:18 17:23 Temperature Pulse Rate 87 84 78 Respiratory Rate Blood Pressure Blood Pressure [Left] O2 Sat by Pulse 97 99 100 Oximetry 01/31/19 01/31/19 01/31/19 17:28 17:30 17:33 Temperature 97.6 F Pulse Rate 74 71 Respiratory 18 Rate Blood Pressure Blood Pressure [Left] O2 Sat by Pulse 100 100 Oximetry 01/31/19 01/31/19 01/31/19 17:37 17:38 17:43 Temperature Pulse Rate 82 74 80 Respiratory Rate Blood Pressure 147/87 Blood Pressure [Left] O2 Sat by Pulse 100 99 Oximetry 01/31/19 01/31/19 01/31/19 17:48 17:53 17:58 Temperature Pulse Rate 83 83 81 Respiratory Rate Blood Pressure Blood Pressure [Left] O2 Sat by Pulse 99 98 98 Oximetry 01/31/19 01/31/19 01/31/19 18:03 18:07 18:08 Temperature Pulse Rate 82 81 80 Respiratory Rate Blood Pressure 122/78 Blood Pressure [Left] O2 Sat by Pulse 98 97 Oximetry 01/31/19 01/31/19 01/31/19 18:13 18:18 18:23 Temperature Pulse Rate 79 81 82 Respiratory Rate Blood Pressure Blood Pressure [Left] O2 Sat by Pulse 97 97 98 Oximetry 01/31/19 01/31/19 01/31/19 18:28 18:33 18:38 Temperature Pulse Rate 78 78 94 H Respiratory Rate Blood Pressure Blood Pressure [Left] O2 Sat by Pulse 96 96 97 Oximetry 01/31/19 01/31/19 01/31/19 18:39 18:43 18:48 Temperature Pulse Rate 96 H 87 80 Respiratory Rate Blood Pressure 138/92 Blood Pressure [Left] O2 Sat by Pulse 99 97 Oximetry 01/31/19 01/31/19 01/31/19 18:53 18:55 18:58 Temperature Pulse Rate 81 79 85 Respiratory Rate Blood Pressure Blood Pressure [Left] O2 Sat by Pulse 96 94 96 Oximetry 01/31/19 01/31/19 01/31/19 19:03 19:08 19:13 Temperature Pulse Rate 90 83 90 Respiratory Rate Blood Pressure 137/84 Blood Pressure [Left] O2 Sat by Pulse 97 97 99 Oximetry 01/31/19 01/31/19 01/31/19 19:18 19:19 19:23 Temperature 97.6 F Pulse Rate 84 89 Respiratory 16 Rate Blood Pressure Blood Pressure [Left] O2 Sat by Pulse 99 98 Oximetry 01/31/19 01/31/19 01/31/19 19:28 19:33 19:38 Temperature Pulse Rate 81 84 84 Respiratory Rate Blood Pressure 137/84 Blood Pressure [Left] O2 Sat by Pulse 97 100 98 Oximetry 01/31/19 01/31/19 01/31/19 19:40 19:43 19:48 Temperature Pulse Rate 81 95 H Respiratory Rate Blood Pressure Blood Pressure 137/84 [Left] O2 Sat by Pulse 97 99 Oximetry 01/31/19 01/31/19 01/31/19 19:53 19:58 20:03 Temperature Pulse Rate 81 85 78 Respiratory Rate Blood Pressure Blood Pressure [Left] O2 Sat by Pulse 99 99 99 Oximetry 01/31/19 01/31/19 01/31/19 20:08 20:10 20:13 Temperature Pulse Rate 84 87 Respiratory Rate Blood Pressure 138/79 Blood Pressure 138/79 [Left] O2 Sat by Pulse 100 100 Oximetry 01/31/19 01/31/19 01/31/19 20:18 20:23 20:28 Temperature Pulse Rate 79 82 71 Respiratory Rate Blood Pressure Blood Pressure [Left] O2 Sat by Pulse 98 99 100 Oximetry 01/31/19 01/31/19 01/31/19 20:33 20:38 20:40 Temperature Pulse Rate 78 88 Respiratory Rate Blood Pressure 155/80 Blood Pressure 155/80 [Left] O2 Sat by Pulse 100 100 Oximetry 01/31/19 01/31/19 01/31/19 20:43 20:48 20:53 Temperature Pulse Rate 80 82 81 Respiratory Rate Blood Pressure Blood Pressure [Left] O2 Sat by Pulse 100 100 100 Oximetry 01/31/19 01/31/19 01/31/19 20:58 21:03 21:08 Temperature Pulse Rate 77 84 85 Respiratory Rate Blood Pressure Blood Pressure [Left] O2 Sat by Pulse 100 100 93 Oximetry 01/31/19 01/31/19 01/31/19 21:09 21:13 21:18 Temperature Pulse Rate 85 82 98 H Respiratory Rate Blood Pressure Blood Pressure [Left] O2 Sat by Pulse 87 100 89 Oximetry 01/31/19 01/31/19 01/31/19 21:35 21:36 21:37 Temperature Pulse Rate 92 H 81 Respiratory Rate Blood Pressure 164/102 164/100 Blood Pressure [Left] O2 Sat by Pulse 97 Oximetry 01/31/19 01/31/19 01/31/19 21:38 21:40 21:41 Temperature Pulse Rate 78 83 Respiratory Rate Blood Pressure 164/102 Blood Pressure 164/102 [Left] O2 Sat by Pulse 98 Oximetry 01/31/19 01/31/19 01/31/19 21:42 21:45 21:46 Temperature Pulse Rate 87 83 Respiratory Rate Blood Pressure 164/102 172/101 Blood Pressure [Left] O2 Sat by Pulse 99 Oximetry 01/31/19 01/31/19 01/31/19 21:51 21:54 21:56 Temperature Pulse Rate 84 82 80 Respiratory Rate Blood Pressure 154/87 Blood Pressure [Left] O2 Sat by Pulse 98 98 Oximetry 01/31/19 01/31/19 01/31/19 22:01 22:06 22:07 Temperature Pulse Rate 92 H 68 71 Respiratory Rate Blood Pressure 135/73 Blood Pressure [Left] O2 Sat by Pulse 97 98 Oximetry 01/31/19 01/31/19 01/31/19 22:12 22:14 22:17 Temperature Pulse Rate 72 73 70 Respiratory Rate Blood Pressure 140/78 Blood Pressure [Left] O2 Sat by Pulse 97 98 Oximetry 01/31/19 01/31/19 01/31/19 22:22 22:24 22:27 Temperature Pulse Rate 76 73 73 Respiratory Rate Blood Pressure 143/81 Blood Pressure [Left] O2 Sat by Pulse 97 98 Oximetry 01/31/19 01/31/19 01/31/19 22:32 22:34 22:45 Temperature Pulse Rate 81 71 82 Respiratory Rate Blood Pressure Blood Pressure [Left] O2 Sat by Pulse 99 92 98 Oximetry 01/31/19 23:07 Temperature Pulse Rate 86 Respiratory Rate Blood Pressure Blood Pressure [Left] O2 Sat by Pulse 99 Oximetry - Exam Breasts: deferred Cardiovascular: Regular rate Lungs: Normal air movement Abdomen: Present: soft. Absent: tenderness Vulva: both: normal Uterus: Present: fundal height above umbilicus. Absent: tenderness FHR: category 2 FHR comments: SROM per RN, patient took off her monitors, importance fo monitoring fetus emphasized, she agrees to IUPG and ISE. IUPC and ISE placed w/o difficulty. She declines epidural at this time Cervical Dilatation: 5 Cervical Effacement Percentage: 90 station: -1 Uterine Contraction Pattern: Regular Extremities: edema (trace) Deep Tendon Reflex Grade: Normal but brisk +3 - Labs Labs: Abnormal Labs 01/30/19 01/30/19 01/30/19 13:20 13:20 15:00 WBC 11.4 H RBC 3.53 L Hgb 7.6 L Hct 24.8 L MCV 70 L MCH 21 L RDW 18.7 H Creatinine 0.5 L Magnesium Lactate Dehydrogenase 374 H Urine pH 8.0 H 01/30/19 01/30/19 01/31/19 16:18 22:37 07:13 WBC RBC Hgb Hct MCV MCH RDW Creatinine Magnesium 3.90 H 5.50 H 5.80 H Lactate Dehydrogenase Urine pH 01/31/19 01/31/19 01/31/19 12:18 17:07 22:29 WBC RBC Hgb Hct MCV MCH RDW Creatinine Magnesium 5.90 H 6.80 H 4.50 H Lactate Dehydrogenase Urine pH Laboratory Results - last 24 hr 01/30/19 01/31/19 01/31/19 22:37 07:13 12:18 Magnesium 5.50 H 5.80 H 5.90 H Urine Opiates Screen Urine Methadone Screen Ur Barbiturates Screen Ur Phencyclidine Scrn Ur Amphetamines Screen U Benzodiazepines Scrn Urine Cocaine Screen U Marijuana (THC) Screen Drugs of Abuse Note 01/31/19 01/31/19 01/31/19 17:07 21:28 22:29 Magnesium 6.80 H 4.50 H Urine Opiates Screen Presumptive negative Urine Methadone Screen Presumptive negative Ur Barbiturates Screen Presumptive negative Ur Phencyclidine Scrn Presumptive negative Ur Amphetamines Screen Presumptive negative U Benzodiazepines Scrn Presumptive negative Urine Cocaine Screen Presumptive negative U Marijuana (THC) Screen Presumptive negative Drugs of Abuse Note Disclamer
[2019-01-31] MEDS ORDERED: NACL 0.9% IV ONE (23:14)
[2019-01-31] MEDS ORDERED: AMPICILLIN IV ONE (23:14)
[2019-01-31] MEDS ORDERED: AMPICILLIN/NS 2 GM/100 ML 2 GM/100 ML BAG IV ONE (23:18)
[2019-01-31] MEDS ORDERED: MAGNESIUM SULFATE 40GM/1000ML 40 GM/1,000 ML BAG IV SCH (23:45)
[2019-02-01] MEDS ORDERED: MARCAINE 0.25% INFILTRATI ONE (00:36)
[2019-02-01] MEDS ORDERED: XYLOCAINE 2% INFILTRATI ONE (00:58)
--- NOTE | 2019-02-01 01:05 | Anesthesia Day of Surgery ---
Anesthesia Day of Surgery - Day of Surgery Patient Examined: Yes Patient H&P Reviewed: Yes Patient is NPO: Yes Beta Blockers: No Cardiac Clearance: No Pulmonary Clearance: No Sergio's Test: N/A
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
[2019-02-01] MEDS ORDERED: NARCAN 2 MG/2 ML IV PRN (01:08)
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
[2019-02-01] MEDS ORDERED: fentaNYL-BUPIV 2 MCG/ML-0.125% 200 MCG/100 ML BAG EPIDURAL SCH (02:00)
--- NOTE | 2019-02-01 02:04 | Procedure Note ---
OB Delivery Note - Delivery Date of Delivery: 02/01/19 Surgeon: IRWIN ENCARNACION Estimated blood loss: other (450mL) - Vaginal Delivery presentation: vertex Delivery position: OA Intrapartum events: preeclampsia, mult.variable deceleratio Delivery induction: oxytocin Delivery augmentation: pitocin Delivery monitor: external FHT, external uterine, internal FHT, internal uterine Route of delivery: Delivery placenta: spontaneous (intact) Episiotomy: none Delivery laceration: other ((R) labial medial, hemostasis, no repair required) Anesthesia: epidural - A Infant Gender: Female (5#5oz)
[2019-02-01] MEDS ORDERED: PHENERGAN PO PRN (02:05)
[2019-02-01] MEDS ORDERED: ZOFRAN IV PRN (02:05)
[2019-02-01] MEDS ORDERED: TYLENOL PO PRN (02:05)
[2019-02-01] MEDS ORDERED: PHENERGAN PR PRN (02:05)
[2019-02-01] MEDS ORDERED: LANSINOH TP PRN (02:05)
[2019-02-01] MEDS ORDERED: MILK OF MAGNESIA PO PRN (02:05)
[2019-02-01] MEDS ORDERED: BENADRYL PO PRN (02:05)
[2019-02-01] MEDS ORDERED: TUCKS PAD TP PRN (02:05)
[2019-02-01] MEDS ORDERED: DULCOLAX PR PRN (02:05)
[2019-02-01] MEDS ORDERED: PITOCin/NS 20 UNIT/1000ML DRIP 20 UNITS/1,000 ML BAG IV SCH (03:00)
[2019-02-01] MEDS ORDERED: SODIUM CHLORIDE FLUSH SYRINGE 10 ML IV NR (03:00)
[2019-02-01] MEDS: IBUPROFEN PO SCH ×2 (03:24→18:57)
--- NOTE | 2019-02-01 08:29 | Progress Note ---
Assessment and Plan - Patient Problems (1) Pre-eclampsia complicating hypertension Onset Date: ~01/30/19 Current Visit: Yes Status: Acute Plan to address problem: BP's stable on labetalol 200mg bid, tolerating MgSO4 much better at 1gm/hr, UO excellent. Plan of care explained, questions encouraged and answered. (2) 35 weeks gestation of Onset Date: ~01/30/19 Current Visit: Yes Status: Resolved (3) Anemia affecting in third trimester Onset Date: ~01/30/19 Current Visit: Yes Status: Acute (4) Insufficient care in third trimester Current Visit: Yes Status: Acute Subjective - Subjective Date of service: 02/01/19 Principal diagnosis: DOD, , preeclampsia Interval history: Resting in bed, alert and appropriately responsive, no complaints, minimal bleeding, she denies, [place], visual changes and RUQ pain Patient reports: appetite normal, pain well controlled Objective - Vital Signs Latest vital signs: Vital Signs Temp Pulse Resp BP BP Pulse Ox 02/01/19 08:24 85 139/83 02/01/19 08:21 87 96 02/01/19 08:16 90 96 02/01/19 08:14 93 H 142/86 02/01/19 08:11 103 H 97 02/01/19 08:08 94 H 94 02/01/19 08:06 88 95 02/01/19 08:04 96 H 138/81 02/01/19 08:01 84 96 02/01/19 07:56 84 95 02/01/19 07:54 90 134/74 02/01/19 07:51 85 96 02/01/19 07:46 85 96 02/01/19 07:44 85 133/77 02/01/19 07:41 86 96 02/01/19 07:36 86 96 02/01/19 07:34 84 146/82 02/01/19 07:31 85 96 02/01/19 07:26 85 96 02/01/19 07:24 84 144/81 02/01/19 07:21 89 95 02/01/19 07:16 99 H 97 02/01/19 07:14 87 142/79 02/01/19 07:11 90 96 02/01/19 07:06 88 96 02/01/19 07:04 93 H 137/78 02/01/19 07:01 87 96 02/01/19 06:56 85 96 02/01/19 06:54 89 141/80 02/01/19 06:51 86 96 02/01/19 06:46 84 97 02/01/19 06:44 86 144/84 02/01/19 06:41 98 H 97 02/01/19 06:36 86 98 02/01/19 06:34 88 136/80 02/01/19 06:31 87 97 02/01/19 06:26 80 98 02/01/19 06:24 84 149/86 02/01/19 06:21 85 97 02/01/19 06:16 90 97 02/01/19 06:14 83 141/84 02/01/19 06:11 82 99 02/01/19 06:06 85 98 02/01/19 06:04 93 H 149/91 02/01/19 06:01 90 99 02/01/19 05:56 97 H 98 02/01/19 05:54 85 146/84 02/01/19 05:51 96 H 96 02/01/19 05:46 89 97 02/01/19 05:44 88 143/82 02/01/19 05:41 89 97 02/01/19 05:36 89 97 02/01/19 05:34 94 H 143/82 02/01/19 05:31 86 97 02/01/19 05:26 87 97 02/01/19 05:24 91 H 152/82 02/01/19 05:21 85 96 02/01/19 05:16 85 97 02/01/19 05:14 86 146/80 02/01/19 05:11 82 96 02/01/19 05:06 85 97 02/01/19 05:04 89 141/76 02/01/19 05:01 86 95 02/01/19 04:56 87 96 02/01/19 04:54 88 137/73 02/01/19 04:51 86 96 02/01/19 04:46 86 96 02/01/19 04:44 87 137/73 02/01/19 04:41 86 96 02/01/19 04:36 85 96 02/01/19 04:34 90 142/82 02/01/19 04:31 87 96 02/01/19 04:26 85 96 02/01/19 04:24 86 142/76 02/01/19 04:21 86 96 02/01/19 04:18 98.4 F 16 02/01/19 04:16 86 96 02/01/19 04:14 88 140/79 02/01/19 04:11 84 96 02/01/19 04:06 83 96 02/01/19 04:04 85 125/75 02/01/19 04:01 79 96 02/01/19 03:56 79 96 02/01/19 03:54 83 132/82 02/01/19 03:51 79 96 02/01/19 03:46 79 96 02/01/19 03:44 81 130/79 02/01/19 03:41 77 96 02/01/19 03:36 77 96 02/01/19 03:34 77 135/81 02/01/19 03:31 79 95 02/01/19 03:26 92 H 97 02/01/19 03:24 91 H 133/78 02/01/19 03:21 80 97 02/01/19 03:17 89 135/78 02/01/19 03:16 99 H 96 02/01/19 03:14 99 H 153/91 02/01/19 03:11 93 H 96 02/01/19 03:06 79 97 02/01/19 03:04 90 138/92 02/01/19 03:01 81 96 02/01/19 02:56 78 96 02/01/19 02:54 86 142/93 02/01/19 02:51 78 96 02/01/19 02:46 77 96 02/01/19 02:44 80 147/93 02/01/19 02:41 79 97 02/01/19 02:36 78 96 02/01/19 02:34 80 145/92 02/01/19 02:31 77 97 02/01/19 02:26 77 96 02/01/19 02:24 79 141/90 02/01/19 02:23 85 94 02/01/19 02:21 81 97 02/01/19 02:16 86 94 02/01/19 02:14 86 140/90 02/01/19 02:11 92 H 97 02/01/19 02:06 96 H 96 02/01/19 02:05 56 L 80 L 04/07/19 02:04 93 H 123/82 02/01/19 02:01 93 H 98 02/01/19 01:56 94 H 99 02/01/19 01:54 93 H 131/85 02/01/19 01:51 90 99 02/01/19 01:46 90 99 02/01/19 01:44 90 148/89 02/01/19 01:41 92 H 98 02/01/19 01:36 93 H 99 02/01/19 01:34 89 142/80 02/01/19 01:31 91 H 100 02/01/19 01:26 91 H 100 02/01/19 01:25 80 124/79 02/01/19 01:23 54 L 71 L 02/01/19 01:21 96 H 100 02/01/19 01:16 85 100 02/01/19 01:15 79 132/79 02/01/19 01:11 80 100 02/01/19 01:06 77 100 02/01/19 01:03 78 121/79 02/01/19 01:02 75 92 02/01/19 01:01 81 97 02/01/19 00:56 87 100 02/01/19 00:54 93 H 154/108 02/01/19 00:51 96 H 98 02/01/19 00:50 90 84 02/01/19 00:46 88 97 02/01/19 00:44 77 144/87 02/01/19 00:22 88 98 02/01/19 00:17 84 99 02/01/19 00:15 83 164/92 02/01/19 00:12 85 97 02/01/19 00:09 81 163/81 02/01/19 00:07 79 96 02/01/19 00:05 82 192/126 02/01/19 00:04 77 L 02/01/19 00:02 80 98 01/31/19 23:57 79 97 01/31/19 23:55 80 145/81 01/31/19 23:52 77 97 01/31/19 23:47 78 99 01/31/19 23:44 78 145/77 01/31/19 23:42 83 100 01/31/19 23:37 86 97 01/31/19 23:35 75 146/81 01/31/19 23:32 77 97 01/31/19 23:27 78 98 01/31/19 23:25 81 176/86 01/31/19 23:22 85 97 01/31/19 23:17 83 97 01/31/19 23:14 82 163/92 01/31/19 23:12 87 97 01/31/19 23:07 86 99 01/31/19 22:45 82 98 01/31/19 22:34 71 92 01/31/19 22:32 81 99 01/31/19 22:27 73 98 01/31/19 22:24 73 143/81 01/31/19 22:22 76 97 01/31/19 22:17 70 98 01/31/19 22:14 73 140/78 01/31/19 22:12 72 97 01/31/19 22:07 71 98 01/31/19 22:06 68 135/73 01/31/19 22:01 92 H 97 01/31/19 21:56 80 98 01/31/19 21:54 82 154/87 01/31/19 21:51 84 98 01/31/19 21:46 83 99 01/31/19 21:45 87 172/101 01/31/19 21:42 164/102 01/31/19 21:41 83 98 01/31/19 21:40 164/102 01/31/19 21:38 78 164/102 01/31/19 21:37 81 164/100 01/31/19 21:36 92 H 97 01/31/19 21:35 164/102 01/31/19 21:18 98 H 89 01/31/19 21:13 82 100 01/31/19 21:09 85 87 01/31/19 21:08 85 93 01/31/19 21:03 84 100 01/31/19 20:58 77 100 01/31/19 20:53 81 100 01/31/19 20:48 82 100 01/31/19 20:43 80 100 01/31/19 20:40 155/80 01/31/19 20:38 88 155/80 100 01/31/19 20:33 78 100 01/31/19 20:28 71 100 01/31/19 20:23 82 99 01/31/19 20:18 79 98 01/31/19 20:13 87 100 01/31/19 20:10 138/79 01/31/19 20:08 84 138/79 100 01/31/19 20:03 78 99 01/31/19 19:58 85 99 01/31/19 19:53 81 99 01/31/19 19:48 95 H 99 01/31/19 19:43 81 97 01/31/19 19:40 137/84 01/31/19 19:38 84 137/84 98 01/31/19 19:33 84 100 01/31/19 19:28 81 97 01/31/19 19:23 89 98 01/31/19 19:19 97.6 F 16 01/31/19 19:18 84 99 01/31/19 19:13 90 99 01/31/19 19:08 83 137/84 97 01/31/19 19:03 90 97 01/31/19 18:58 85 96 01/31/19 18:55 79 94 01/31/19 18:53 81 96 01/31/19 18:48 80 97 01/31/19 18:43 87 99 01/31/19 18:39 96 H 138/92 01/31/19 18:38 94 H 97 01/31/19 18:33 78 96 01/31/19 18:28 78 96 01/31/19 18:23 82 98 01/31/19 18:18 81 97 01/31/19 18:13 79 97 01/31/19 18:08 80 97 01/31/19 18:07 81 122/78 01/31/19 18:03 82 98 01/31/19 17:58 81 98 01/31/19 17:53 83 98 01/31/19 17:48 83 99 01/31/19 17:43 80 99 01/31/19 17:38 74 100 01/31/19 17:37 82 147/87 01/31/19 17:33 71 100 01/31/19 17:30 97.6 F 18 01/31/19 17:28 74 100 01/31/19 17:23 78 100 01/31/19 17:18 84 99 01/31/19 17:13 87 97 01/31/19 17:10 89 94 01/31/19 17:08 89 99 01/31/19 17:03 71 100 01/31/19 16:58 74 100 01/31/19 16:53 72 100 01/31/19 16:48 74 100 01/31/19 16:43 74 100 01/31/19 16:42 94 H 79 L 01/31/19 16:38 76 141/85 100 01/31/19 16:33 75 100 01/31/19 16:28 79 99 01/31/19 16:23 81 99 01/31/19 16:18 73 100 01/31/19 16:13 69 100 01/31/19 16:08 77 147/89 100 01/31/19 16:03 72 100 01/31/19 15:58 83 99 01/31/19 15:53 69 100 01/31/19 15:48 67 100 01/31/19 15:43 67 100 01/31/19 15:38 77 99 01/31/19 15:37 71 139/90 01/31/19 15:33 77 100 01/31/19 15:28 77 99 01/31/19 15:23 79 100 01/31/19 15:18 74 100 01/31/19 15:13 76 99 01/31/19 15:08 83 128/76 99 01/31/19 15:03 83 100 01/31/19 14:58 81 100 01/31/19 14:53 86 99 01/31/19 14:48 82 99 01/31/19 14:43 80 99 01/31/19 14:38 82 100 01/31/19 14:37 75 130/83 01/31/19 14:33 78 100 01/31/19 14:28 88 99 01/31/19 14:23 83 99 01/31/19 14:18 80 99 01/31/19 14:13 79 98 01/31/19 14:08 81 99 01/31/19 14:07 79 128/80 01/31/19 14:03 79 100 01/31/19 13:58 82 100 01/31/19 13:53 83 100 01/31/19 13:48 81 99 01/31/19 13:43 76 99 01/31/19 13:38 75 99 01/31/19 13:37 77 136/85 01/31/19 13:33 74 99 01/31/19 13:28 70 99 01/31/19 13:23 74 99 01/31/19 13:18 84 97 01/31/19 13:13 77 98 01/31/19 13:09 77 136/85 01/31/19 13:08 78 98 01/31/19 13:03 84 99 01/31/19 12:58 82 98 01/31/19 12:53 82 99 01/31/19 12:48 83 98 01/31/19 12:43 83 98 01/31/19 12:38 76 97 01/31/19 12:37 78 134/82 01/31/19 12:33 84 98 01/31/19 12:28 81 97 01/31/19 12:23 84 97 01/31/19 12:18 94 H 96 01/31/19 12:13 79 96 01/31/19 12:12 85 94 01/31/19 12:08 86 95 01/31/19 12:07 79 130/77 01/31/19 12:03 81 96 01/31/19 11:58 79 96 01/31/19 11:53 80 96 01/31/19 11:48 80 97 01/31/19 11:43 87 98 01/31/19 11:38 85 97 01/31/19 11:37 81 142/84 01/31/19 11:33 86 98 01/31/19 11:30 98 F 18 01/31/19 11:28 82 97 01/31/19 11:23 87 97 01/31/19 11:18 90 98 01/31/19 11:13 89 97 01/31/19 11:08 87 98 01/31/19 11:07 82 141/90 01/31/19 11:02 88 98 01/31/19 10:57 86 97 01/31/19 10:52 88 96 01/31/19 10:47 89 131/79 96 01/31/19 10:42 87 95 01/31/19 10:37 91 H 131/79 97 01/31/19 10:32 87 98 01/31/19 10:27 88 96 01/31/19 10:22 88 97 01/31/19 10:19 90 93 01/31/19 10:17 84 96 01/31/19 10:12 83 97 01/31/19 10:07 92 H 143/80 97 04/06/19 10:02 85 96 01/31/19 09:57 82 96 01/31/19 09:52 99 H 97 01/31/19 09:47 82 95 01/31/19 09:42 88 96 01/31/19 09:37 89 138/85 95 01/31/19 09:32 87 97 01/31/19 09:27 89 96 01/31/19 09:22 84 96 01/31/19 09:17 89 98 01/31/19 09:12 88 98 01/31/19 09:08 89 147/90 01/31/19 09:07 90 98 01/31/19 09:02 88 98 01/31/19 08:57 87 99 01/31/19 08:52 89 99 01/31/19 08:47 89 99 01/31/19 08:42 93 H 98 01/31/19 08:38 89 150/83 01/31/19 08:37 87 98 01/31/19 08:32 97 H 97 01/31/19 08:27 88 99 Intake and Output 01/31/19 02/01/19 02/01/19 22:59 06:59 14:59 Intake Total 80.300 Output Total 3400 1200 Balance -3319.700 -1200 Intake: IV 80.300 PITOCin/NS 30 UNIT/500ML 80.300 30 units In 500 ml @ 4 MILLIUNITS/MIN 4 mls/hr IV TITR JAMES Rx#:[id number] Output: Urine 3400 1200 Indwelling Catheter 3400 1200 Other: Total, Output Amount 900 1200 - Exam Breasts: Present: normal. Absent: pain, , engorged Cardiovascular: Present: Regular rate Lungs: Present: Clear to auscultation, Normal air movement Abdomen: Present: normal appearance, soft. Absent: distention, tenderness Uterus: Present: firm, fundal height below umbilicus. Absent: tenderness Extremities: Present: normal. Absent: edema Deep Tendon Reflex Grade: Normal +2 - Labs Labs: Abnormal lab results 01/31/19 01/31/19 01/31/19 Range/Units 12:18 17:07 22:29 Magnesium 5.90 H 6.80 H 4.50 H (1.7-2.3) mg/dL 02/01/19 Range/Units 05:57 Magnesium 4.60 H (1.7-2.3) mg/dL
[2019-02-01] MEDS: NORMODYNE PO SCH ×2 (10:35→21:50)
[2019-02-01 12:30] LABS: Hematocrit 24.1 % (30.3-42.9); Hemoglobin 7.5 gm/dl (10.1-14.3)
[2019-02-01] MEDS: LACTATED RINGERS 1,000 ML IV SCH (18:57)
[2019-02-02] MEDS: IBUPROFEN PO SCH ×2 (00:53→12:30)
[2019-02-02] MEDS ORDERED: BOOSTRIX IM ONE (06:00)
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
[2019-02-02] MEDS: FEOSOL PO SCH ×2 (09:57→22:46)
[2019-02-02] MEDS: NORMODYNE PO SCH ×2 (09:57→22:46)
[2019-02-03] MEDS: IBUPROFEN PO SCH ×4 (04:33→18:04)
[2019-02-03] MEDS ORDERED: APRESOLINE IV ONE (04:36)
--- NOTE | 2019-02-03 07:56 | Progress Note ---
Assessment and Plan patient caring for infant in room, states she feels fine "it's just normal for me, I've always had high blood pressure." Will start procardia as b/p remains elevated on labetalol alone (140-170's/80-110). H&H 7.5/24.1 - asymptomatic existing anemia. Dr. Srinivasan consulted. Continue current management, consider d/c home once b/p is well managed. - Patient Problems (1) Pre-eclampsia superimposed on chronic hypertension, delivered Current Visit: Yes Status: Acute Plan to address problem: Labetalol 200mg PO BID Procardia 30ml PO QD (2) Vaginal delivery Current Visit: Yes Status: Acute (3) Chronic anemia Onset Date: Unknown Current Visit: Yes Status: Acute Plan to address problem: FE supplementation Subjective - Subjective Date of service: 02/03/19 Principal diagnosis: day # 2 s/p , htn with superimposed preeclampsia Patient reports: appetite normal, voiding normally, pain well controlled, ambulating normally, no dizzy ambulation, no nauseated, no other (denies SALOMON/Visual changes/epigastric pain) : doing well, bottle feeding Objective - Vital Signs Latest vital signs: Vital Signs Temp Pulse Resp BP Pulse Ox 02/03/19 06:12 91 H 158/96 97 02/03/19 05:51 84 148/96 98 02/03/19 05:45 91 H 156/94 98 02/03/19 05:33 91 H 162/100 98 02/03/19 05:21 174/111 02/03/19 04:28 98.0 F 18 167/107 02/03/19 00:00 98.0 F 83 15 144/90 98 02/02/19 22:50 98.9 F 87 18 156/100 99 02/02/19 22:46 90 156/100 02/02/19 16:10 98.8 F 93 H 20 142/91 98 02/02/19 11:16 146/88 02/02/19 09:57 88 155/110 02/02/19 09:09 98.9 F 85 20 146/97 98 Intake and Output 02/02/19 02/02/19 02/03/19 15:59 23:59 07:59 Intake Total 200 Balance 200 Intake: Oral 200 Other: Total, Intake Amount 200 # Voids Void 1 - Exam Breasts: Present: normal Cardiovascular: Present: Regular rate Lungs: Present: Clear to auscultation, Normal air movement Abdomen: Present: normal appearance, soft Vulva: right: laceration/episiotomy (labia) Uterus: Present: normal, firm, fundal height at umbilicus Extremities: Present: normal Deep Tendon Reflex Grade: Normal +2
[2019-02-03] MEDS: PROCARDIA XL PO SCH (08:45)
[2019-02-03] MEDS: NORMODYNE PO SCH ×2 (11:30→22:01)
[2019-02-03] MEDS: FEOSOL PO SCH ×2 (11:30→22:00)
--- NOTE | 2019-02-03 16:58 | Event Note ---
Date: 02/03/19 reviewed b/p's with Dr. Srinivasan. Will increase PM labetalol dose to 300mg tonight and continue to monitor. RN informed of change in medication.
--- NOTE | 2019-02-03 17:32 | Event Note ---
Date: 02/03/19 Agree with MW note and exam. Will increase labetalol to 300mg bid and monitor in am. if bps less than 140s/90s will consider d/c tomorrow on both bp meds.
[2019-02-04] MEDS: IBUPROFEN PO SCH ×3 (00:08→12:18)
--- NOTE | 2019-02-04 06:25 | Discharge Summary ---
Providers - Providers Date of Admission: 01/30/19 12:05 Date of discharge: 02/04/19 (pt desires d/c Appt made for f/u Saturday) Attending physician: HEATHER OBREGON 02/01/19 02:07 Consult to Office Copy Selector [CONS] Routine Reason For Exam: assistance with , SNS Primary care physician: IRWIN ENCARNACION Hospitalization Reason for admission: induction of labor (IOL @ 35 w for PreE/Chronic htn) Delivery: Episiotomy: none Laceration: 2nd degree Incision: normal, dry, intact Other procedures: none complications: none Discharge diagnosis: delivery baby: male Hospital course: uncomplicated vaginal delivery @ 35 weeks Pt resting No c/o voiced Denies SALOMON, blurred vision, chest pain. BP 140-130/100-80 FF below umb Lochia scant Perineum slight swelling intact H&H stable No s/sx of anemia despite being chronic anemia. Doing well s/p vaginal delivery. BP managed by Labetalol 300mg and ProcardiaXL 30 P: Will consult with Dr Obregon for final word on d/c Will observe BPs during the day. Pt has an appt in our office Saturday02-06-19 @ 1115. RX for meds done. Instructions given Disposition: DC-30 STILL A PATIENT - Discharge Diagnoses (1) Pre-eclampsia complicating hypertension Status: Acute Comment: appt in office 02-06-19 @ 1115 (2) Chronic anemia Status: Acute Comment: RX iron provided Plan - Discharge Medications Prescriptions: Docusate Sodium [Colace] 100 mg PO BID PRN #60 capsule PRN Reason: Constipation Ferrous Sulfate [Feosol 325 MG tab] 325 mg PO TID #90 tablet Labetalol HCl 300 mg PO BID #60 tablet Labetalol [Normodyne TAB] 200 mg PO BID #60 tablet NIFEdipine XL [Procardia Xl] 30 mg PO QDAY #30 tablet - Provider Discharge Summary Activity: routine, no sex for 6 weeks, no heavy lifting 4 weeks, no strenuous exercise Diet: other (increase iron in diet take po iron as instructed; NO SALT) Instructions: routine Additional instructions: [] Smoking cessation referral if applicable(refer to patient education folder for contact #) [] Refer to [facility]'s [facility] Booklet Call your doctor immediately for: * Fever > 100.5 * Heavy vaginal bleeding ( >1 pad per hour) * Severe persistent headache * Shortness of breath * Reddened, hot, painful area to leg or breast * Drainage or odor from incision. * Keep incision clean and dry at all times and follow doctor's instructions regarding bathing/showering - Follow up plan Follow up: IRWIN ENCARNACION MD [Primary Care Provider] - 02/06/19 11:15 am (Congratulations! Please call [phone] with any complaints of headache, blurred vision, chest pain. Keep appointment as scheduled for Saturday. Remember to bring EMLA cream with you to his circumcision visit. Do NOT use at home. Take medications as prescribed. Call with any concerns.)
[2019-02-04] MEDS: FEOSOL PO SCH (10:25)
[2019-02-04] MEDS: PROCARDIA XL PO SCH (10:25)
[2019-02-04] MEDS: NORMODYNE PO SCH (10:26)
--- NOTE | 2019-02-04 12:26 | Event Note ---
Date: 02/04/19 (Pt desires D/C) Consulted with Dr. Rodarte. Agrees with D/C. Emphasized to pt taking medication on time. Call with SALOMON, blurry vision, or chest pain. Pt to keep appt on Tuesday 02/06 @ 1115. All Rx on chart.
[2019-02-04 14:45] VITALS: BP 146/99
== END 2019-02-04 14:30 | disposition home or self-care (01) | DRG 774 ==
LOC: LD 12:05 → OB 02-02 01:27
PROVIDERS: ADMIT Obstetrics & Gynecology; ATTEND Obstetrics & Gynecology
PROC: 3E033VJ Introduction of Other Hormone into Peripheral Vein, Percutaneous Approach (ICD-10-PCS; 2019-01-30)
PROC: 10H07YZ Insertion of Other Device into Products of Conception, Via Natural or Artificial Opening (ICD-10-PCS; 2019-01-31)
PROC: 10E0XZZ Delivery of Products of Conception, External Approach (ICD-10-PCS; principal; 2019-02-01)
PROC: 3E0R3BZ Introduction of Anesthetic Agent into Spinal Canal, Percutaneous Approach (ICD-10-PCS; 2019-02-01)
PROC: 00HU33Z Insertion of Infusion Device into Spinal Canal, Percutaneous Approach (ICD-10-PCS; 2019-02-01)
PROC: 3E0234Z Introduction of Serum, Toxoid and Vaccine into Muscle, Percutaneous Approach (ICD-10-PCS; 2019-02-02)
DX: O11.4 Pre-existing hypertension with pre-eclampsia, complicating childbirth (principal); O99.02 Anemia complicating childbirth; O76 Abnormality in fetal heart rate and rhythm complicating labor and delivery; D64.9 Anemia, unspecified; O60.14X0 Preterm labor third trimester with preterm delivery third trimester, not applicable or unspecified; Z3A.35 35 weeks gestation of pregnancy; Z37.0 Single live birth; Z23 Encounter for immunization; O70.0 First degree perineal laceration during delivery
CPT/HCPCS: 36415; 59200; 76816; 76819; 80307; 81001; 82565; 83615; 83735; 84156; 84450; 84460; 84550; 85014; 85018; 85027; 86592; 86850; 86900; 86901; 88307; 96372; G0378; J0290; J0360; J0702; J2590; J3010; J3475; J7120

== ENCOUNTER 2021-01-08 23:32 | Observation (INO) | payer MEDICAID ==
--- NOTE | 2021-01-09 01:10 | Emergency Department Report ---
<LAVERNE RYAN - Last Filed: 01/09/21 04:35> ED HPI - General Stated complaint: BLEEDING Source: patient Mode of arrival: Ambulatory Limitations: No Limitations - History of Present Illness Initial comments: Patient reports that she is and was seen by FLOORING MECHANIC yesterday and is noted that her hCG level was high but they did not see anything IUP on ultrasound. Patient was referred here by Dr. Pierson to have a work-up and possible methotrexate. Patient reports her last menstrual period was 11/20/2020. Patient is 2 para 1. Denies any vaginal discharge has a little vaginal bleeding. Denies any pelvic pain. Reports her hCG level is greater than 10,000. Denies any dysuria no nausea no vomiting. No complications with her last . - Related Data Previous Rx's Medication Instructions Recorded Last Taken Type labetaloL [Labetalol 200mg TAB] 200 mg PO BID #60 tablet 02/02/19 Unknown Rx Docusate Sodium [Colace] 100 mg PO BID PRN #60 capsule 02/03/19 Unknown Rx Ferrous Sulfate [Feosol 325 MG tab] 325 mg PO TID #90 tablet 02/03/19 Unknown Rx NIFEdipine XL [Procardia Xl] 30 mg PO QDAY #30 tablet 02/03/19 Unknown Rx Labetalol HCl [Labetalol 300mg TAB] 300 mg PO BID #60 tablet 02/04/19 Unknown Rx Allergies Allergy/AdvReac Type Severity Reaction Status Date / Time No Known Allergies Allergy Unverified 01/27/19 17:08 ED Past Medical Hx - Past Medical History Previous Medical History?: No Hx Hypertension: No Hx Diabetes: No Hx Deep Vein Thrombosis: No Hx Renal Disease: No Hx Sickle Cell Disease: No Hx Seizures: No Hx Asthma: No Hx HIV: No - Surgical History Past Surgical History?: No - Social History Smoking Status: Never Smoker Substance Use Type: None - Medications Home Medications: Home Medications Medication Instructions Recorded Confirmed Last Taken Type labetaloL [Labetalol 200mg TAB] 200 mg PO BID #60 tablet 02/02/19 Unknown Rx Docusate Sodium [Colace] 100 mg PO BID PRN #60 capsule 02/03/19 Unknown Rx Ferrous Sulfate [Feosol 325 MG tab] 325 mg PO TID #90 tablet 02/03/19 Unknown Rx NIFEdipine XL [Procardia Xl] 30 mg PO QDAY #30 tablet 02/03/19 Unknown Rx Labetalol HCl [Labetalol 300mg TAB] 300 mg PO BID #60 tablet 02/04/19 Unknown Rx ED Physical Exam - General General appearance: alert, in no apparent distress - Head Head exam: Present: atraumatic, normocephalic - Eye Eye exam: Present: normal appearance - ENT ENT exam: Present: mucous membranes moist - Neck Neck exam: Present: normal inspection - Respiratory Respiratory exam: Present: normal lung sounds bilaterally. Absent: respiratory distress - Cardiovascular Cardiovascular Exam: Present: regular rate, normal rhythm. Absent: systolic murmur, diastolic murmur, rubs, gallop - GI/Abdominal GI/Abdominal exam: Present: soft, normal bowel sounds - Extremities Exam Extremities exam: Present: normal inspection, full ROM. Absent: pedal edema - Back Exam Back exam: Present: normal inspection - Neurological Exam Neurological exam: Present: alert, oriented X3, normal gait - Psychiatric Psychiatric exam: Present: normal affect, normal mood - Skin Skin exam: Present: warm, dry, intact, normal color. Absent: rash ED Course - Consultations Consultation #1: 01/09/21 03:33 Call made to ER social secretary to have Dr. Kenna wells. Consultation #2: 01/09/21 04:[address] Pierson patient is going to be discharged from the emergency room and to be taken over to mother-baby room 2102 orders have already been placed by Dr. Pierson. ED Medical Decision Making - Lab Data Result diagrams: 01/09/21 00:40 01/09/21 00:40 - Medical Decision Making Patient reports that she is and was seen by FLOORING MECHANIC yesterday and is noted that her hCG level was high but they did not see anything IUP on ultrasound. Patient was referred here by Dr. Pierson to have a work-up and possible methotrexate. Patient reports her last menstrual period was 11/20/2020. Patient is 2 para 1. Denies any vaginal discharge has a little vaginal bleeding. Denies any pelvic pain. Reports her hCG level is greater than 10,000. Denies any dysuria no nausea no vomiting. No complications with her last . Spoke with Dr. Pierson patient is going to be admitted to room 2103 mother-baby. ED Disposition Clinical Impression: Ectopic Disposition: DC-09 OP ADMIT IP TO THIS HOSP Is pt being admited?: No Does the pt Need Aspirin: No Condition: Good <MAYMARIKA - Last Filed: 01/09/21 05:40> ED Review of Systems ROS: Stated complaint: BLEEDING Other details as noted in HPI ED Course Vital Signs 01/09/21 01/09/21 01:04 01:08 Temperature 99.7 F H Pulse Rate 109 H Respiratory 20 Rate Blood Pressure 138/79 O2 Sat by Pulse 100 Oximetry ED Medical Decision Making - Lab Data Result diagrams: 01/09/21 00:40 01/09/21 00:40 Critical care attestation.: If time is entered above; I have spent that time in minutes in the direct care of this critically ill patient, excluding procedure time. ED Disposition Is pt being admited?: Yes Does the pt Need Aspirin: No
[2021-01-09 01:20] LABS: BUN/Creatinine Ratio 9; Blood Urea Nitrogen 7 mg/dL (7-17); Calcium 9.2 mg/dL (8.4-10.2); Hemolysis Index 0
[2021-01-09 01:53] LABS: Basophils # (Auto) 0.1 K/mm3 (0.0-0.1); Basophils % (Auto) 0.7 % (0.0-1.8); Eosinophils % (Auto) 0.6 % (0.0-4.3); Hematocrit 31.8 % (30.3-42.9); Hemoglobin 9.9 gm/dl (10.1-14.3); Lymphocytes # (Auto) 2.1 K/mm3 (1.2-5.4); Lymphocytes % (Auto) 24.8 % (13.4-35.0); Mean Corpuscular HGB Conc 31 % (30-34); Monocytes # (Auto) 0.7 K/mm3 (0.0-0.8); Platelet Count 260 K/mm3 (140-440); Red Blood Count 4.82 M/mm3 (3.65-5.03); Red Cell Distribution Width 17.1 % (13.2-15.2)
[2021-01-09 01:55] LABS: Mean Corpuscular Volume 66 fl (79-97)
--- NOTE | 2021-01-09 03:15 | Ultrasound Report ---
US OB <= 14 weeks fetus INDICATION / CLINICAL INFORMATION: with abdominal pain concern for ectopic. TECHNIQUE: Transabdominal. Color Doppler performed. COMPARISON: None available. FINDINGS: UTERUS: Appears within normal limits. GESTATIONAL SAC: Possible gestational sac seen and pole measuring 3 mm adjacent to the endometr ium. This appears to be completely surrounded by myometrium. No heart rate is identified. ADNEXA: No significant abnormality. FREE FLUID: None. ADDITIONAL FINDINGS: None. IMPRESSION: 1. Possible gestational sac with pole within the myometrium of the uterus. Findings are nonspec ific but could represent an interstitial ectopic . Recommend follow-up beta hCG and sonogram s as clinically indicated. Signer Name: Jaden Rajput MD Signed: 01/09/2021 3:11 AM Workstation Name: [id number]
[2021-01-09 03:37] LABS: Bilirubin,Urine NEG (Negative); Blood,Urine LG (Negative); Color,Urine Yellow (Yellow); Mucus,Urine 2+ /HPF; RBC,Urine > 182.0 /HPF (0.0-6.0)
--- NOTE | 2021-01-09 06:01 | Event Note ---
Date: 01/09/21 (Pt in good spirits) Pt denies pain, states she has some "mild cramping" Pt reports she had a lot of bleeding and clots in the ER. Bleeding now is scant No c/o pain Uterus is non tender Pt made aware of labs that are ordered. All concerns addressed
[2021-01-09 08:06] LABS: Alanine Aminotransferase 8 units/L (7-56); Albumin 3.8 g/dL (3.9-5)
--- NOTE | 2021-01-09 08:19 | Event Note ---
Date: 01/09/21 (received a call from BELA Ellison) Pt is leaving [place]. She has no one to care for her son. Pt instructed to call office for f/u. Dr Srinivasan made aware.
[2021-01-09 08:24] LABS: Bilirubin,Direct < 0.2 mg/dL (0-0.2)
--- NOTE | 2021-01-09 09:01 | Event Note ---
Date: 01/09/21 When provider was en route to the hospital was informed of pt decision to leave AMA. I did not have the opportunity to examine the pt this am prior to her leaving. Pt also was not counseled by myself today regarding the abnormal and treatment and risk to her health if not treated or if an ectopic . She was however counseled on Saturday01/06/21 which was the original date pt was to be admitted for treatment via methotrexate. Pt as per [employer] will have apt in office this week for follow up. Pt left AMA times two in the last several hours of being in the ER and then on the mother/baby floor.
[2021-01-09 10:46] VITALS: BP 130/72
== END 2021-01-09 08:00 | disposition left against medical advice (07) ==
LOC: ED 23:32 → OB 01-09 05:00 → INTOOBSV 01-09 05:00
PROVIDERS: ADMIT Obstetrics & Gynecology; ATTEND Obstetrics & Gynecology
DX: O00.90 Unspecified ectopic pregnancy without intrauterine pregnancy (principal); Z3A.00 Weeks of gestation of pregnancy not specified
CPT/HCPCS: 36415; 76801; 80048; 80076; 81001; 84702; 85025; 86850; 86900; 86901; 96365; 96375; 99284; 99285; G0378

== ENCOUNTER 2021-12-12 09:56 | Outpatient (CLI) | payer MEDICAID ==
[2021-12-12 11:34] LABS: Hematocrit 29.6 % (30.3-42.9); Hemoglobin 8.9 gm/dl (10.1-14.3); Mean Corpuscular HGB Conc 30 % (30-34); Platelet Count 178 K/mm3 (140-440); Red Blood Count 4.56 M/mm3 (3.65-5.03)
[2021-12-12 11:37] LABS: Mean Corpuscular Volume 65 fl (79-97); Red Cell Distribution Width 27.7 % (13.2-15.2)
[2021-12-12 11:49] VITALS: BP 106/66
[2021-12-12 11:56] LABS: Alanine Aminotransferase 8 units/L (7-56); Uric Acid 3.2 mg/dL (3.5-7.6)
--- NOTE | 2021-12-12 12:01 | Ultrasound Report ---
ULTRASOUND BIOPHYSICAL PROFILE ULTRASOUND OB LIMITED INDICATION: elevated B/P TECHNIQUE: Transabdominal ultrasound imaging. COMPARISON: None FINDINGS: breathing movement = 2 Gross body movement = 2 tone = 2 Qualitative amniotic fluid volume = 2 Total biophysical score = 8/8 Amniotic fluid index is 14.1 cm. Presentation is cephalic. heart rate is 142 beats per minute. IMPRESSION: biophysical profile equals 8/8. Signer Name: Murali López Jr, MD Signed: 12/12/2021 11:57 AM Workstation Name: [id number]
[2021-12-12 12:05] LABS: Bacteria,Urine 1+ /HPF (Negative); Mucus,Urine FEW /HPF
[2021-12-12 12:23] LABS: Bilirubin,Urine Negative (Negative); Blood,Urine Trace (Negative); Color,Urine Straw (Yellow)
== END 2021-12-12 12:35 | disposition home or self-care (01) ==
LOC: TRG 09:56 → APU 09:57 → TRG 12:35
PROVIDERS: ATTEND Obstetrics & Gynecology
DX: O13.1 Gestational [pregnancy-induced] hypertension without significant proteinuria, first trimester (principal); Z3A.01 Less than 8 weeks gestation of pregnancy
CPT/HCPCS: 36415; 59025; 76815; 76819; 81001; 82565; 83615; 84450; 84460; 84550; 85027; 87086

== ENCOUNTER 2021-12-20 09:19 | Inpatient (IN) | payer MEDICAID ==
[2021-12-20] MEDS ORDERED: LIDOCAINE (2%) 20 MG/1 ML VIAL 20 ML MDV INFILTRATI NR (10:41)
[2021-12-20] MEDS: LACTATED RINGERS 1,000 ML IV SCH ×2 (10:55→16:59)
[2021-12-20] MEDS ORDERED: AMPICILLIN/NS 2 GM/100 ML 2 GM/100 ML BAG IV ONE (11:00)
[2021-12-20] MEDS ORDERED: TERBUTALINE 1 MG/1 ML INJ SUB-Q PRN (11:00)
[2021-12-20] MEDS ORDERED: OXYTOCIN DRIP 30 UNITS/500 ML BAG IV SCH ×2 (11:00)
[2021-12-20] MEDS ORDERED: METHYLERGONOVINE MALEATE 0.2 MG/ML VIAL IM PRN (11:30)
[2021-12-20] MEDS ORDERED: BUTORPHANOL 2 MG/1 ML INJ IV PRN ×2 (11:30)
[2021-12-20] MEDS ORDERED: NALOXONE 0.4 MG/1 ML INJ IV PRN (11:30)
[2021-12-20] MEDS ORDERED: LOPERAMIDE 2 MG CAP PO PRN (11:30)
[2021-12-20] MEDS ORDERED: ePHEDrine SULFATE 50 MG/1 ML INJ IV PRN ×2 (11:30→16:57)
[2021-12-20] MEDS ORDERED: OXYTOCIN 10 UNIT/1 ML INJ IM PRN (11:30)
[2021-12-20] MEDS ORDERED: CARBOPROST TROMETHAMINE 250 MCG/1 ML INJ IM PRN (11:30)
[2021-12-20] MEDS ORDERED: miSOPROStol 200 MCG TAB PR PRN (11:30)
[2021-12-20] MEDS ORDERED: ACETAMINOPHEN 325 MG TAB PO PRN (12:00)
--- NOTE | 2021-12-20 13:46 | History and Physical Report ---
History of Present Illness Date of examination: 12/20/21 Date of admission: 12/20/2021 Chief complaint: Labor Pains History of present illness: care at [facility], course complicated by late entry to care; Hypokalemia (completed K+ at [facility]); and severe Anemia (s/p blood transfusion on 11/27/2021: 2 units). Past History Past Medical History: no pertinent history Past Surgical History: no surgical history Family/Genetic History: none Social history: no significant social history, single - Obstetrical History Expected Date of Delivery: 12/28/21 Actual Gestation: 38 Week(s) 6 Day(s) : 2 Para: 1 Number of Pregnancies: 1 Number of Living Children: 1 Medications and Allergies Allergies Allergy/AdvReac Type Severity Reaction Status Date / Time No Known Allergies Allergy Verified 12/12/21 10:32 Home Medications Medication Instructions Recorded Confirmed Last Taken Type No Known Home Medications [No 12/12/21 12/12/21 Unknown History Reported Home Medications] Active Meds: Active Medications Acetaminophen (Acetaminophen 325 Mg Tab) 650 mg PO Q4H PRN PRN Reason: Pain, Mild (1-3) Butorphanol Tartrate (Butorphanol 2 Mg/1 Ml Inj) 2 mg IV Q2H PRN PRN Reason: Pain , Severe (7-10) Butorphanol Tartrate (Butorphanol 2 Mg/1 Ml Inj) 1 mg IV Q2H PRN PRN Reason: Pain, Moderate(4-6) LABOR PAIN Carboprost Tromethamine (Carboprost Tromethamine 250 Mcg/1 Ml Inj) 250 mcg IM ONCE PRN PRN Reason: Uterine Bleeding Ephedrine Sulfate (Ephedrine Sulfate 50 Mg/1 Ml Inj) 10 mg IV Q2M PRN PRN Reason: Hypotension Oxytocin/Sodium Chloride (Pitocin/Ns 30 Unit/500ml) 30 units in 500 mls @ 2 mls/hr IV TITR JAMES; Protocol Lactated Ringer's (Lactated Ringers) 1,000 mls @ 125 mls/hr IV DIRECT JAMES Oxytocin/Sodium Chloride (Pitocin/Ns 30 Unit/500ml) 30 units in 500 mls @ 40 mls/hr IV TITR JAMES; Protocol Ampicillin Sodium (Ampicillin/Ns 1 Gm/50 Ml) 1 gm in 50 mls @ 100 mls/hr IV Q4H JAMES; Protocol Loperamide HCl (Loperamide 2 Mg Cap) 2 mg PO ONCE PRN PRN Reason: give with Hemabate Methylergonovine Maleate (Methylergonovine Maleate 0.2 Mg/Ml Vial) 0.2 mg IM ONCE PRN PRN Reason: Uterine Bleeding Mineral Oil (Mineral Oil 30 Ml Oral Liqd) 30 ml PO QHS PRN PRN Reason: Constipation Misoprostol (Misoprostol 200 Mcg Tab) 800 mcg OK ONCE PRN PRN Reason: Uterine Bleeding Naloxone HCl (Naloxone 0.4 Mg/1 Ml Inj) 0.1 mg IV Q2MIN PRN PRN Reason: Res Rate </= 8 or 02 SAT < 92% Oxytocin (Oxytocin 10 Unit/1 Ml Inj) 10 unit IM ONCE PRN PRN Reason: Uterine Bleeding Terbutaline Sulfate (Terbutaline 1 Mg/1 Ml Inj) 0.25 mg SUB-Q ONCE PRN PRN Reason: Hyperstimulation/Hypertonicity Review of Systems All systems: negative - Vital Signs Vital signs: Vital Signs Pulse Pulse Ox 110 H 98 12/20/21 10:12 12/20/21 10:12 Temp Pulse Resp BP Pulse Ox 98.1 F 95 H 18 124/79 99 12/20/21 10:18 12/20/21 13:32 12/20/21 10:18 12/20/21 10:18 12/20/21 13:32 - Physical Exam Breasts: Positive: normal Cardiovascular: Regular rate Lungs: Positive: Clear to auscultation, Normal air movement Abdomen: Positive: normal appearance, soft, normal bowel sounds Genitourinary (Female): Positive: normal external genitalia, normal perenium Vagina: Positive: normal moisture Uterus: Positive: enlarged Anus/Rectum: Positive: normal perianal skin Extremities: Positive: normal - Obstetrical FHR: category 1 Uterine Contraction Monitor Mode: External Cervical Dilatation: 6 Cervical Effacement Percentage: 70 station: -3 Uterine Contraction Pattern: Irregular Uterine Tone Measurement Phase: Resting Uterine Contraction Intensity: Moderate Results All other labs normal. Assessment and Plan A: IUP @ 38 6/7 Weeks Category I Tracing Early Labor/Advanced Dilatation GBS Negative P: Admit to L&D Per Routine Orders Pitocin Augmentation
[2021-12-20] MEDS ORDERED: AMPICILLIN/NS 1 GM/50 ML 1 GM/50 ML BAG IV SCH (15:00)
[2021-12-20 15:31] LABS: Hematocrit 29.6 % (30.3-42.9); Mean Corpuscular HGB Conc 31 % (30-34); Platelet Count 187 K/mm3 (140-440); Red Blood Count 4.53 M/mm3 (3.65-5.03)
[2021-12-20 15:37] LABS: Mean Corpuscular Volume 65 fl (79-97); Red Cell Distribution Width 27.4 % (13.2-15.2)
--- NOTE | 2021-12-20 16:55 | Anesthesia Consultation ---
Anesthesia Consult and Med Hx Date of service: 12/20/21 - Airway Anesthetic Teeth Evaluation: Good ROM Head & Neck: Adequate Mental/Hyoid Distance: Adequate Mallampati Class: Class II Intubation Access Assessment: Probably Good - Pulmonary Exam CTA: Yes - Cardiac Exam Cardiac Exam: RRR - Pre-Operative Health Status ASA Pre-Surgery Classification: ASA2 Proposed Anesthetic Plan: Epidural - Pulmonary Hx Smoking: No Hx Asthma: No COPD: No Hx Pneumonia: No Hx Sleep Apnea: No - Cardiovascular System Hx Hypertension: Yes (2018) Hx Heart Attack/AMI: No Hx Angina: No - Central Nervous System Hx Seizures: No Hx Psychiatric Problems: No - Gastrointestinal Hx Gastroesophageal Reflux Disease: No - Endocrine Hx Renal Disease: No Hx End Stage Renal Disease: No Hx Liver Disease: No Hx Insulin Dependent Diabetes: No Hx Non-Insulin Dependent Diabetes: No Hx Hypothyroidism: No Hx Hyperthyroidism: No - Hematic Hx Anemia: No Hx Sickle Cell Disease: No - Other Systems Hx Alcohol Use: No Hx Cancer: No
--- NOTE | 2021-12-20 16:56 | Progress Note ---
Labor Epidural - Labor Epidural Start Time: 16:40 Stop Time: 16:50 Performed by:: GERALD RACHEL ([facility]) Procedure: Patient is requesting epidural for labor and pain. H&P, labs were reviewed. Patient IDed, H&P reviewed, all questions and concerns were answered, and consent was signed. Timeout was performed at bedside. Patient in sitting position. Sterile prep and drape was performed. 3ml of 1% lidocaine skin wheal at L[3]- L [4]. 17-gauge Tuohy epidural needle was advanced to loss of resistance with air technique 6.5cm. Negative CSF negative blood. Epidural catheter advanced to [12] centimeters. [negative] Aspiration [negative] test dose. Sterile dressing applied. Patient tolerated procedure.
[2021-12-20] MEDS ORDERED: diphenhydrAMINE 50 MG/ML VIAL IV PRN (16:57)
[2021-12-20] MEDS ORDERED: NalbUPHINE 10 MG/1 ML INJ IV PRN (16:57)
[2021-12-20] MEDS ORDERED: LACTATED RINGERS 250 ML IV SOLN IV ONE (16:57)
[2021-12-20] MEDS ORDERED: ONDANSETRON 4 MG/2 ML INJ IV PRN (16:57)
[2021-12-20] MEDS ORDERED: NALOXONE 2 MG/2 ML INJ IV PRN (16:57)
[2021-12-20] MEDS ORDERED: fentaNYL-BUPIV 2 MCG/ML-0.125% 200 MCG/100 ML BAG EPIDURAL SCH (17:00)
[2021-12-20] MEDS ORDERED: MINERAL OIL 30 ML ORAL LIQD ONE (17:21)
[2021-12-20] MEDS ORDERED: LIDOCAINE (2%) 20 MG/1 ML VIAL 20 ML MDV INFILTRATI ONE (17:21)
[2021-12-20] MEDS ORDERED: LANOLIN/ZINC/DIMETHICONE (LANSINOH) 7 GM TP PRN (18:23)
[2021-12-20] MEDS ORDERED: WITCH HAZEL/ GLYCERIN PAD TP PRN (18:23)
[2021-12-20] MEDS ORDERED: HYDROcodone/ACETAMINOPHEN 5-325 MG TAB PO PRN (18:23)
--- NOTE | 2021-12-20 18:34 | Procedure Note ---
OB Delivery Note - Delivery Date of Delivery: 12/20/21 (1751) Surgeon: CAR COLÓN Estimated blood loss: other (178) - Vaginal Delivery presentation: vertex Delivery position: OA Intrapartum events: none Delivery induction: none Delivery augmentation: rupture of membranes (AROM of a moderate amount of clear fluid at 1734), pitocin Delivery monitor: external FHT, external uterine Route of delivery: Delivery placenta: spontaneous Delivery cord: 3 umbilical vessels Delivery laceration: 2nd degree Delivery repair: vicryl Anesthesia: epidural Delivery comments: of a live 6'8 female infant over a 2nd degree vaginal/perineal laceration under epidural anesthesia with Apgars of 9 and 9 at 1751 on 12/20/2021. Infant directly to maternal abd/chest, skin to skin contact. Spontaneous delivery of placenta complete and intact with Barrios side presenting at 1754. Fundus is firm and midline located 4 below the U. Lochia is scant. Delayed cord clamping and cutting; Cord cut by the patient's Mother. Vaginal/Perineal laceration repaired with 2-[address]-1. Placenta discarded. - A at 1 minute: 9 at 5 minutes: 9 Gender: Female (6'8)
[2021-12-20] MEDS ORDERED: MINERAL OIL 30 ML ORAL LIQD PO PRN (22:00)
[2021-12-20] MEDS: IBUPROFEN 800 MG TAB PO SCH (23:12)
[2021-12-21] MEDS: IBUPROFEN 800 MG TAB PO SCH ×2 (05:38→21:07)
[2021-12-21 07:00] LABS: Hematocrit 27.7 % (30.3-42.9); Hemoglobin 8.2 gm/dl (10.1-14.3)
[2021-12-21] MEDS ORDERED: FERROUS SULFATE 325 MG TAB PO SCH (10:00)
[2021-12-21] MEDS ORDERED: PRENATAL VIT27-FE FUMARATE-FOLIC ACID VIT TAB PO SCH (10:00)
--- NOTE | 2021-12-21 10:41 | Progress Note ---
Assessment and Plan A: S/P Asymptomatic anemia P: Continue routine pp orders Fe prescribed Encourage Fe rich foods D/c home tomm if stable - Patient Problems (1) (normal spontaneous vaginal delivery) Current Visit: Yes Status: Acute Subjective - Subjective Date of service: 12/21/21 Principal diagnosis: s/p Patient reports: appetite normal, voiding normally, pain well controlled, ambulating normally : doing well, bottle feeding Objective - Vital Signs Latest vital signs: Vital Signs Temp Pulse Resp BP BP Pulse Ox Pulse Ox 12/21/21 09:11 98.0 F 90 18 128/83 98 12/21/21 05:38 98 12/21/21 04:55 98.2 F 78 20 126/80 98 12/21/21 03:40 97 12/21/21 01:25 98 12/20/21 23:23 98.2 F 85 20 137/71 100 12/20/21 23:10 97 12/20/21 21:15 99 12/20/21 21:05 99.1 F 97 H 18 132/88 99 12/20/21 20:04 99.5 F 17 12/20/21 19:50 85 127/72 12/20/21 19:45 87 127/76 12/20/21 19:40 89 128/79 12/20/21 19:35 80 130/78 12/20/21 19:30 85 126/76 12/20/21 19:25 86 122/72 12/20/21 19:20 85 120/71 12/20/21 19:15 82 121/73 12/20/21 19:10 82 120/62 12/20/21 19:06 89 147/64 12/20/21 19:00 82 115/67 12/20/21 18:55 82 128/74 12/20/21 18:50 85 121/71 12/20/21 18:45 82 119/69 12/20/21 18:40 80 116/67 12/20/21 18:35 84 118/56 12/20/21 18:30 81 116/64 12/20/21 18:25 85 109/62 12/20/21 18:20 98 H 105/66 12/20/21 18:15 93 H 94/50 12/20/21 18:10 94 H 111/57 12/20/21 18:05 97 H 112/57 12/20/21 18:01 100 H 116/61 12/20/21 18:00 98.5 F 20 12/20/21 17:56 142 H 123/98 12/20/21 17:35 110 H 120/63 12/20/21 17:30 104 H 121/64 12/20/21 17:27 71 87 12/20/21 17:25 104 H 124/67 12/20/21 17:20 104 H 125/66 12/20/21 17:15 104 H 126/65 12/20/21 17:11 91 12/20/21 17:08 113 H 125/72 12/20/21 17:06 104 H 123/58 12/20/21 17:04 100 H 128/60 12/20/21 17:02 100 H 123/63 12/20/21 17:01 114 H 133/63 12/20/21 16:57 95 H 117/56 12/20/21 16:55 96 H 123/58 12/20/21 16:53 96 H 133/69 100 12/20/21 16:51 39 L 146/90 0 L 12/20/21 16:48 101 H 125/67 99 12/20/21 16:46 106 H 122/67 12/20/21 16:42 131 H 99 12/20/21 16:37 116 H 100 12/20/21 16:30 98.5 F 20 12/20/21 16:23 99 H 99 12/20/21 16:18 128 H 99 12/20/21 16:13 101 H 99 12/20/21 16:08 107 H 100 12/20/21 16:03 101 H 99 12/20/21 16:02 107 H 111/55 12/20/21 15:58 98 H 99 12/20/21 15:53 98 H 97 12/20/21 15:48 100 H 99 12/20/21 15:43 101 H 96 12/20/21 15:38 94 H 97 12/20/21 15:34 99 H 110/53 12/20/21 15:33 100 H 98 12/20/21 15:28 92 H 96 12/20/21 15:23 108 H 98 12/20/21 15:18 102 H 99 12/20/21 15:13 119 H 99 12/20/21 15:08 119 H 98 12/20/21 15:03 105 H 123/73 98 12/20/21 14:58 103 H 99 12/20/21 14:53 110 H 98 12/20/21 14:48 104 H 99 12/20/21 14:43 105 H 98 12/20/21 14:38 103 H 98 12/20/21 14:33 96 H 98 12/20/21 14:32 101 H 130/77 12/20/21 14:28 104 H 98 12/20/21 14:23 101 H 97 12/20/21 14:18 105 H 97 12/20/21 14:16 98.6 F 16 12/20/21 14:13 107 H 97 12/20/21 14:08 98 H 99 12/20/21 14:03 100 H 97 12/20/21 13:32 95 H 99 12/20/21 13:27 108 H 99 12/20/21 13:22 101 H 98 12/20/21 13:17 100 H 99 12/20/21 13:12 106 H 98 12/20/21 13:07 99 H 98 12/20/21 13:02 100 H 98 12/20/21 12:57 99 H 99 12/20/21 12:52 114 H 99 12/20/21 12:47 110 H 99 12/20/21 12:42 114 H 99 12/20/21 12:37 104 H 98 12/20/21 12:32 102 H 99 12/20/21 12:27 103 H 99 12/20/21 12:24 109 H 93 12/20/21 12:22 109 H 97 12/20/21 12:17 107 H 97 12/20/21 12:12 106 H 98 12/20/21 12:07 99 H 98 12/20/21 12:02 102 H 98 12/20/21 11:57 104 H 99 99 12/20/21 11:52 110 H 99 12/20/21 11:47 102 H 99 12/20/21 11:42 103 H 100 12/20/21 11:37 110 H 100 12/20/21 11:32 98 H 99 12/20/21 11:27 105 H 100 12/20/21 11:22 92 H 98 12/20/21 11:17 105 H 98 12/20/21 11:12 108 H 98 12/20/21 11:07 102 H 100 12/20/21 11:02 107 H 100 12/20/21 10:57 120 H 97 12/20/21 10:52 111 H 100 12/20/21 10:47 106 H 100 12/20/21 10:42 107 H 100 Intake and Output 12/20/21 12/21/21 12/21/21 22:59 06:59 14:59 Intake Total 765.133 240 Output Total 700 1000 Balance 65.133 -760 Intake: IV 765.133 Lactated Ringers 1,000 ml 758.333 @ 125 mls/hr IV DIRECT JAMES Rx#:[id number] PITOCin/NS 30 UNIT/500ML 6.800 30 units In 500 ml @ 2 mls/hr IV TITR JAMES Rx#: [id number] Oral 240 Output: Urine 700 1000 Indwelling Catheter 150 Void 550 1000 Other: Total, Intake Amount 240 Total, Output Amount 400 400 Estimated Blood Loss 178 - Exam Breasts: Present: normal Abdomen: Present: normal appearance, soft, normal bowel sounds Vulva: both: normal Uterus: Present: normal, firm, fundal height below umbilicus Extremities: Present: normal Incision: Present: normal, intact - Labs Labs: Abnormal lab results 12/20/21 12/21/21 Range/Units 11:05 06:48 WBC 12.1 H (4.5-11.0) K/mm3 Hgb 9.0 L 8.2 L (10.1-14.3) gm/dl Hct 29.6 L 27.7 L (30.3-42.9) % MCV 65 L (79-97) fl MCH 20 L (28-32) pg RDW 27.4 H (13.2-15.2) %
--- NOTE | 2021-12-21 10:46 | Discharge Summary ---
Providers - Providers Date of Admission: 12/20/21 18:23 Date of discharge: 12/22/21 Attending physician: PADDY MARTINEZ MD Primary care physician: PADDY MARTINEZ MD Hospitalization Reason for admission: active labor, IUP at term Delivery: Episiotomy: none Laceration: 2nd degree Incision: normal, intact Other procedures: none complications: none Discharge diagnosis: IUP at term delivered baby: female Hospital course: Pt was admitted to [facility] in active labor and had a w/o pp complications. See h&p, delivery summary, and pp notes. Condition at discharge: Stable Disposition: HOME / SELF CARE / HOMELESS - Discharge Diagnoses (1) (normal spontaneous vaginal delivery) Status: Acute Plan - Discharge Medications Prescriptions: Ibuprofen [Motrin 800 MG tab] 800 mg PO Q6H PRN #30 tablet PRN Reason: Menstrual Cramps - Provider Discharge Summary Activity: routine, no sex for 6 weeks, no heavy lifting 4 weeks, no strenuous exercise Diet: other (Fe rich diet) Instructions: routine Additional instructions: [] Smoking cessation referral if applicable(refer to patient education folder for contact #) [] Refer to [facility] Booklet Call your doctor immediately for: * Fever > 100.5 * Heavy vaginal bleeding ( >1 pad per hour) * Severe persistent headache * Shortness of breath * Reddened, hot, painful area to leg or breast * Drainage or odor from incision. * Keep incision clean and dry at all times and follow doctor's instructions regarding bathing/showering - Follow up plan Follow up: PADDY MARTINEZ MD [Primary Care Provider] - 6 Weeks
--- NOTE | 2021-12-21 13:58 | Post Anesthesia Evaluation ---
- Post Anesthesia Evaluation Patient Participated: Yes Airway Patent: Yes Stable Respiratory Function: Yes Nausea/Vomiting: No Temp > 96.8F: Yes Pain Manageable: Yes Adequeate Hydration: Yes Anesthesia Complications: No Block Receding Appropriately: Yes Patient on Ventilator: No
[2021-12-21 21:57] VITALS: BP 133/88
== END 2021-12-21 22:15 | disposition home or self-care (01) | DRG 775 ==
LOC: TRG 09:19 → APU 09:22 → LD 13:58 → TRG 18:30 → OB 21:04
PROVIDERS: ADMIT Obstetrics & Gynecology; ATTEND Obstetrics & Gynecology
PROC: 10E0XZZ Delivery of Products of Conception, External Approach (ICD-10-PCS; principal; 2021-12-20)
PROC: 0KQM0ZZ Repair Perineum Muscle, Open Approach (ICD-10-PCS; 2021-12-20)
PROC: 3E0R3BZ Introduction of Anesthetic Agent into Spinal Canal, Percutaneous Approach (ICD-10-PCS; 2021-12-20)
PROC: 00HU33Z Insertion of Infusion Device into Spinal Canal, Percutaneous Approach (ICD-10-PCS; 2021-12-20)
DX: O16.4 Unspecified maternal hypertension, complicating childbirth (principal); Z3A.38 38 weeks gestation of pregnancy; Z37.0 Single live birth; O70.1 Second degree perineal laceration during delivery; O90.81 Anemia of the puerperium
CPT/HCPCS: 36415; 85014; 85018; 85027; 86850; 86900; 86901; G0378; J0290; J2590; J7120; U0003